=== PATIENT | female | born 1995 | race Caucasian/White ===

== ENCOUNTER 2018-03-12 21:46 | Emergency (ER) | payer OTHER, SELFPAY ==
[2018-03-12 21:53] VITALS: BP 110/70; PULSE 75; RESP 18; TEMP 36.7; O2SAT 98; BMI 24.9
--- NOTE | 2018-03-12 22:13 | PC.NURSE ---
Pt reports she was at the gym tonight. She was doing barbell squats and did some running on treadmill after, came home and having intense pain around L thigh, hamstring with radiation down L leg with tingling in L foot. +CMS and ambulatory on arrival. Pt reports she has a traumatic fall off a horse 7 years ago, my hamstring ripped and took a piece of my pelvic bone with it and i have a bone spur there Pt thinks she reinjured/aggravated it tonight at the gym. Asked pt if she had any trouble with urination/ BM- reports she is unsure since she has not tried since the gym but will update after using restroom
--- NOTE | 2018-03-12 22:32 | DI.RAD.S_ITS ---
PROCEDURE: XR HIP W PEL IF DONE LT 2V INDICATIONS: pain, previous pelvic fracture TECHNIQUE: AP pelvis with lateral view(s) of the left hip(s). COMPARISON: None. FINDINGS: Bones: There are corticated fracture fragments involving the left ishium, consistent with old fracture. No acute fractures or dislocations. Pelvic ring appears intact. No suspicious bony lesions. Soft tissues: The visualized bowel gas pattern is normal. No suspicious soft tissue calcifications. IMPRESSION: 1. No acute fracture or dislocation. 2. Old ischial avulsion fracture. Dictated by: Concetta Hu M.D. on 03/13/2018 at 7:23 Approved by: Concetta Hu M.D. on 03/13/2018 at 7:26
[2018-03-12] MEDS: IBUPROFEN 400 MG TABLET 800 MG PO (22:40)
[2018-03-13] VITALS: BP 114/54; PULSE 66; RESP 16; O2SAT 100
--- NOTE | 2018-03-13 02:16 | ED_ITS ---
HPI - Extremity Injury (Lower) General Chief Complaint: Extremity Injury, Lower Stated Complaint: PELVIC BONE Time Seen by Provider: 03/12/18 22:24 Source: patient Mode of arrival: ambulatory Limitations: no limitations History of Present Illness HPI Narrative: Patient is a 22-year-old female presenting with left groin pain. She was at the gym yesterday she was doing squats with a barbell she was able to run on the treadmill afterwards. Today she went to the mall and while driving home she had intense left groin pain. It hurts whenever she moves her hip. No flank pain no painful urination. No numbness or tingling. She is a previous injury of the the left pelvic ring. She had a horse injury they said she has an avulsion fracture which never quite healed right. She has not had any issues. She is able to weightbear however she says it is painful. She has not taken anything for pain today. She denies any fevers. Related Data Allergies Allergy/AdvReac Type Severity Reaction Status Date / Time amoxicillin Allergy Hives Verified 03/12/18 21:59 azithromycin Allergy Hives Verified 03/12/18 21:59 Review of Systems Review of Systems GENERAL: Denies chills,fever HEENT: Denies throat pain RESPIRATORY: Denies dyspnea, cough, wheezing CARDIOVASCULAR: Denies chest pain, palpitations GASTROINTESTINAL: Denies nausea, vomiting MUSCULOSKELETAL: See HPI SKIN: No rash, no laceration, no pruritus NEUROLOGIC: Denies weakness, dizziness, headache, numbness 8 point review of systems is negative except for those stated above and HPI All systems reviewed & are unremarkable except as noted in HPI and below [facility] Social History Smoking Status: Never smoker Exam Initial Vital Signs Initial Vital Signs: Vital Signs Temperature 98.0 F 03/12/18 21:53 Pulse Rate 75 03/12/18 21:53 Respiratory Rate 18 03/12/18 21:53 Blood Pressure 110/70 03/12/18 21:53 Pulse Oximetry 98 03/12/18 21:53 GENERAL: Tearful young female CARDIOVASCULAR: peripheral pulses in tact, cap refill <2 sec RESPIRATORY: No respiratory distress, speaks in full sentences without difficulty ABDOMEN: Soft, nontender, no guarding or rebound : No CVA tenderness EXTREMITIES: Normal range of motion, no clubbing or edema. Neurovascularly intact -pelvis is stable tender all left hip. Extreme hip pain with internal and external rotation. Needed ankle stable and nontender. NEUROLOGICAL: Cranial nerves II through XII grossly intact. Normal gait and speech. SKIN: Warm, dry, no petechiae, no rashes or lesions. Course Orders Ordered: ED Orders 03/12/18 22:32 XR hip w pel if done LT 2V Stat Discontinued Medications Ibuprofen (Advil) 800 mg PO NOW ONE Stop: 03/12/18 22:33 Last Admin: 03/12/18 22:40 Dose: 800 mg Vital Signs - 8 hr 03/12/18 21:53 03/13/18 00:00 Temperature 98.0 F Pulse Rate 75 66 Respiratory Rate 18 16 Blood Pressure 110/70 114/54 L Pulse Oximetry 98 100 MDM - Extremity Injury (Lower) Imaging Data Left hip x-ray: Attestation: I personally reviewed and interpreted this imaging study as follows: My impression: Old avulsion fracture noted on the left inferior rami, no acute process otherwise. [facility] Narrative Medical decision making narrative: Pain improved after Motrin. Feeling better. More likely a musculoskeletal strain. Discharge Plan Departure Patient Disposition: Home, Self-Care Clinical Impression: Strain of left inguinal muscle Discharge Date/Time: 03/13/18 00:02 Interventions: ED Discharge Assessment Last Done: 03/13/18 00:00 Instructions: Groin Strain Activity Restrictions/Additional Instructions: *You have been diagnosed with all left groin strain *What to do: Ice, limit activity until feeling better, x-ray does not show any new findings, previous fractures still noted *Continue to take medications as directed -Motrin 800 mg every 8 hr if needed for pain with food *Follow up with your primary care provider in 2-3 days *Return to ER if you should have any new, worsening or concerning symptoms Stand Alone Forms: Work/School Restrictions
== END 2018-03-13 00:02 | disposition home or self-care (01) ==
PROVIDERS: Emergency Provider Emergency Medicine
DX: S39.013A Strain of muscle, fascia and tendon of pelvis, initial encounter (principal); Y93.B9 Activity, other involving muscle strengthening exercises
CPT/HCPCS: 73502; 81003; 81025; 99283; 99284

== ENCOUNTER → 2018-07-22 16:09 | Outpatient (CLI) | payer OTHER, SELFPAY ==
--- NOTE | 2018-07-22 16:11 | DI.RAD.S_ITS ---
PROCEDURE: XR CHEST 2V INDICATIONS: cough, shortness of breath, chest pain, fatigue TECHNIQUE: 2 views of the chest were acquired. COMPARISON: None. FINDINGS: Surgical changes and devices: None. Lungs and pleura: No pleural effusions or pneumothorax. Lungs are clear. Mediastinum: Mediastinal contours are normal. Heart size is normal. Bones and chest wall: No suspicious bony abnormalities. Soft tissues appear unremarkable. IMPRESSION: No acute pulmonary process. Dictated by: Nicky Bethea M.D. on 07/22/2018 at 16:33 Approved by: Nicky Bethea M.D. on 07/22/2018 at 16:34
== END ==
PROVIDERS: Visit Provider Physician Assistant
DX: R05 Cough (principal); R06.02 Shortness of breath; R07.9 Chest pain, unspecified; R53.83 Other fatigue
CPT/HCPCS: 71046

== ENCOUNTER → 2019-04-29 13:51 | Outpatient (CLI) | payer OTHER, SELFPAY ==
--- NOTE | 2019-04-29 13:55 | DI.RAD.S_ITS ---
PROCEDURE: XR FOOT RT MIN 3V INDICATIONS: Right foot pain TECHNIQUE: 3 views of the foot were acquired. COMPARISON: [facility], CR, XR ANKLE RT MIN 3V, 04/29/2019, 14:13. FINDINGS: Bones: No fractures or dislocations. No suspicious bony lesions. No significant degenerative changes are evident. Soft tissues: No tibiotalar joint effusion. The overlying soft tissues are within normal limits. IMPRESSION: No acute osseous abnormality of the right foot. Dictated by: Aki Ty M.D. on 04/29/2019 at 13:20 Approved by: Aki yT M.D. on 04/29/2019 at 13:21
--- NOTE | 2019-04-29 13:55 | DI.RAD.S_ITS ---
PROCEDURE: XR ANKLE RT MIN 3V INDICATIONS: Right foot pain TECHNIQUE: 3 views of the ankle were acquired. COMPARISON: None. FINDINGS: Bones: No fractures or dislocations. Ankle mortise is normally aligned. No suspicious bony lesions. No significant degenerative changes of the right midfoot or hindfoot joints are appreciated. Soft tissues: No tibiotalar joint effusion. The overlying soft tissues are unremarkable. IMPRESSION: No acute fracture of the right ankle. Dictated by: Aki Ty M.D. on 04/29/2019 at 13:21 Approved by: Aki Ty M.D. on 04/29/2019 at 13:21
== END ==
PROVIDERS: Visit Provider Physician Assistant
DX: M25.571 Pain in right ankle and joints of right foot (principal); M79.671 Pain in right foot
CPT/HCPCS: 73610; 73630

== ENCOUNTER 2019-05-09 14:01 | Emergency (ER) | payer OTHER, SELFPAY ==
[2019-05-09 14:05] VITALS: BP 132/85; PULSE 81; RESP 18; TEMP 36.5; O2SAT 98
--- NOTE | 2019-05-09 14:37 | ED.PSYCH ---
HPI - Psych <FADY Baker - Last Filed: 05/09/19 23:46> General Chief Complaint: Psychiatric Symptoms Stated Complaint: withdrawls from anxiety medication Time Seen by Provider: 05/09/19 14:04 Source: patient Mode of arrival: ambulatory Limitations: no limitations History of Present Illness HPI Narrative: This is a 23-year-old female, nonsmoker, presents to ED with generalized body aches, nausea, feeling anxious, auditory and visual hallucination, headache. Patient reports that she had ran out of Zoloft 4 days ago. She takes 150 mg per day and she has been on the medications since September 2018 for depression and anxiety. She was initially diagnosed with depression when she was in [employer]. However she started on medication this year. She initially started with 25 mg daily and has been increased slowly. She has been on 150 mg Zoloft last 3 months. The patient reports she was not aware that she needed to be seen at the clinic by her primary care provider to get the prescription refilled. However, she reports that auditory and visual hallucinations started before she ran out of the medication which was 4 days ago. She reports takes occasional edible MJ but does not use other recreational drugs. She reports her menses is due about to at this time. She reports she is not suicidal or homicidal. She reports has an appointment in mid May with her provider at [facility] in [place] to get her prescription renewed which she intends to keep this. She once had ran out of medication in the past but the withdrawal symptoms is not as severe as this time. Related Data Home Medications Medication Instructions Recorded Confirmed sertraline [Zoloft] 150 mg PO DAILY 05/09/19 05/09/19 Previous Rx's Medication Instructions Recorded albuterol sulfate HFA 90 2 puff INHALATION Q4-6H PRN #8.5 08/01/18 mcg/actuation aerosol inhaler gram sertraline 100 mg PO Q24H #45 tab 05/09/19 Allergies Allergy/AdvReac Type Severity Reaction Status Date / Time tramadol Allergy Severe Vomiting, Verified 05/09/19 14:13 Diarrhea amoxicillin Allergy Hives Verified 05/09/19 14:13 azithromycin Allergy Hives Verified 05/09/19 14:13 Review of Systems <FADY Baker - Last Filed: 05/09/19 23:46> Constitutional Comments: General: Reports feeling hot and cold, . Denies fever. HEENT: Denies sinus pain, ear pain, sore throat, difficulty swallowing, dizziness. Respiratory: Reports some difficulty breathing. Denies cough, wheezing, hemoptysis, sputum. Cardiovascular: Denies chest pain, palpitations, orthopnea, edema. Gastrointestinal: Reports nausea, abdominal pain and diarrhea. Denies Vomiting, constipation, melena. : Denies dysuria, frequency, incontinence, hematuria, urinary retention. Musculoskeletal: Reports generalized body aches. Skin: Denies rash, skin lesions, or other. Neurologic: Reports weakness/tingling/numbness. Reports feeling shaky. Reports vision change. Reports headache. Reports insomnia. Psychiatric: Denies suicidal or homicidal ideation. Reports visual and auditory hallucination. 12-point review of systems is negative except for those stated above. PFSH <FADY Baker - Last Filed: 05/09/19 23:46> Medical History Anxiety (Acute) Depression (Acute) Social History Smoking Status: Never smoker Social History Smoking Status: Never smoker Exam <FADY Baker - Last Filed: 05/09/19 23:46> Narrative Exam Narrative: General appearance: well developed, well nourished, in tears during exam. Head: normocephalic, atraumatic, no scalp lesions, non-tender. Eye: pupil equal, round. EOMI. Nose: nares patent. Oral: mucosa moist. Neck/Thyroid: neck supple, full range of motion, no visible masses. Skin: no suspicious rashes, lesions over visible areas. Warm and dry. Heart: no clubbing, no cyanosis, no edema. Lungs: Breathing even and unlabored. No stridor. No accessory muscles used. Chest: normal shape and expansion. Abdomen: non-obese, non-distended. Neurologic: alert and oriented. Cognitive exam, INVENTORY CONTROL/SHIPPING RECEIVING and PNS grossly intact on informal exam. Initial Vital Signs Initial Vital Signs: Vital Signs Temperature 97.7 F 05/09/19 14:05 Pulse Rate 81 05/09/19 14:05 Respiratory Rate 18 05/09/19 14:05 Blood Pressure 132/85 05/09/19 14:05 Pulse Oximetry 98 05/09/19 14:05 Psych Appearance: grossly normal and well kempt Mental Status: mental status grossly normal Speech and Movement: speech and movement normal and not restless Mood: anxious mood Affect: anxious affect Attitude: cooperative Thought Process: normal Thought Content: normal Judgment: judgment good <Anum Moore DO - Last Filed: 05/10/19 08:19> Initial Vital Signs Initial Vital Signs: Vital Signs Temperature 97.7 F 05/09/19 14:05 Pulse Rate 81 05/09/19 14:05 Respiratory Rate 18 05/09/19 14:05 Blood Pressure 132/85 05/09/19 14:05 Pulse Oximetry 98 05/09/19 14:05 Course <FADY Baker - Last Filed: 05/09/19 23:46> Orders Ordered: Discontinued Medications Lorazepam (Ativan) 0.5 mg PO NOW ONE Stop: 05/09/19 15:05 Last Admin: 05/09/19 15:30 Dose: 0.5 mg Ondansetron HCl (Zofran Odt) 4 mg SL NOW ONE Stop: 05/09/19 14:34 Last Admin: 05/09/19 14:38 Dose: 4 mg Vital Signs - 8 hr 05/09/19 14:05 Temperature 97.7 F Pulse Rate 81 Respiratory Rate 18 Blood Pressure 132/85 Pulse Oximetry 98 <Anum Moore DO - Last Filed: 05/10/19 08:19> Orders Ordered: Discontinued Medications Lorazepam (Ativan) 0.5 mg PO NOW ONE Stop: 05/09/19 15:05 Last Admin: 05/09/19 15:30 Dose: 0.5 mg Ondansetron HCl (Zofran Odt) 4 mg SL NOW ONE Stop: 05/09/19 14:34 Last Admin: 05/09/19 14:38 Dose: 4 mg Vital Signs - 8 hr 05/09/19 14:05 Temperature 97.7 F Pulse Rate 81 Respiratory Rate 18 Blood Pressure 132/85 Pulse Oximetry 98 MDM - Psych <FADY Baker - Last Filed: 05/09/19 23:46> Differential Diagnosis Likely acute psychosis, depression and other (Zolof withdrawl) Medical Records Attestation: I reviewed the patient's medical records. Lab Data Attestation: I reviewed the patient's lab results. Result diagrams: 05/09/19 14:45 05/09/19 14:45 Lab Results 05/09/19 05/09/19 05/09/19 Range/Units 14:42 14:45 14:45 WBC 7.2 (4.5-11.0) X10^3/uL RBC 4.01 (4.0-5.2) X10^6/uL Hgb 12.9 (12.0-16.0) g/dL Hct 38.2 (36-46) % MCV 95.3 (80-100) fL MCH 32.3 (26-34) PG MCHC 33.9 (30-36) % RDW 11.6 (11.6-14.8) % Plt Count 184 (150-400) X10^3/uL Neut % (Auto) 60.6 (50-75) % Lymph % (Auto) 27.4 (25-40) % [place] % (Auto) 8.2 (3-14) % Eos % (Auto) 3.1 (2-4) % Baso % (Auto) 0.7 (0-2) % Neut # (Auto) 4300 (4314-4792) /uL Lymph # (Auto) 2000 (4231-9943) /uL [place] # (Auto) 600 (0-900) /uL Eos # (Auto) 200 (0-450) /uL Baso # (Auto) 100 (0-100) /uL Sodium 140 (137-145) mmol/L Potassium 4.2 (3.4-5.1) mmol/L Chloride 104 (98-107) mmol/L Carbon Dioxide 25 (22-32) mmol/L BUN 14 (7-17) mg/dL Creatinine 0.70 (0.52-1.04) mg/dL Estimated GFR > 60.0 (>60) mL/min BUN/Creatinine Ratio 20.0 (6-22) Glucose 77 (70-100) mg/dL Calcium 9.7 (8.4-10.2) mg/dL TSH (0.47-4.68) uIU/mL Urine Opiates Screen Negative (Negative) Ur Oxycodone Screen Negative (Negative) Urine Methadone Screen Negative (Negative) Ur Barbiturates Screen Negative (Negative) U Tricyclic Antidepress Negative (Negative) Ur Phencyclidine Scrn Negative (Negative) Ur Amphetamines Screen Negative (Negative) U Methamphetamines Scrn Negative (Negative) Ur MDMA Scrn (Ecstasy) Negative (Negative) U Benzodiazepines Scrn Negative (Negative) Urine Cocaine Screen Negative (Negative) U Marijuana (THC) Screen Positive H (Negative) Ethyl Alcohol < 10 ( - 10) mg/dL 05/09/19 Range/Units 14:45 WBC (4.5-11.0) X10^3/uL RBC (4.0-5.2) X10^6/uL Hgb (12.0-16.0) g/dL Hct (36-46) % MCV (80-100) fL MCH (26-34) PG MCHC (30-36) % RDW (11.6-14.8) % Plt Count (150-400) X10^3/uL Neut % (Auto) (50-75) % Lymph % (Auto) (25-40) % [place] % (Auto) (3-14) % Eos % (Auto) (2-4) % Baso % (Auto) (0-2) % Neut # (Auto) (4958-0207) /uL Lymph # (Auto) (6867-2130) /uL [place] # (Auto) (0-900) /uL Eos # (Auto) (0-450) /uL Baso # (Auto) (0-100) /uL Sodium (137-145) mmol/L Potassium (3.4-5.1) mmol/L Chloride (98-107) mmol/L Carbon Dioxide (22-32) mmol/L BUN (7-17) mg/dL Creatinine (0.52-1.04) mg/dL Estimated GFR (>60) mL/min BUN/Creatinine Ratio (6-22) Glucose (70-100) mg/dL Calcium (8.4-10.2) mg/dL TSH 1.72 (0.47-4.68) uIU/mL Urine Opiates Screen (Negative) Ur Oxycodone Screen (Negative) Urine Methadone Screen (Negative) Ur Barbiturates Screen (Negative) U Tricyclic Antidepress (Negative) Ur Phencyclidine Scrn (Negative) Ur Amphetamines Screen (Negative) U Methamphetamines Scrn (Negative) Ur MDMA Scrn (Ecstasy) (Negative) U Benzodiazepines Scrn (Negative) Urine Cocaine Screen (Negative) U Marijuana (THC) Screen (Negative) Ethyl Alcohol ( - 10) mg/dL Urine Dip Bedside Urine Glucose Negative Bedside Urine Bilirubin - Negative Bedside Urine Ketone +/- 5 Urine Specific [place] 1.030 Bedside Urine Occult Blood - Negative Bedside Urine pH 5.5 Bedside Urine Protein - Negative Bedside Urine Urobilinogen - Negative Bedside Urine Nitrite - Negative Bedside Urine Leukocytes - Negative Esterase MDM Narrative Medical decision making narrative: This is a 23-year-old female who came in to ED with multiple symptoms which is consistent with Zolof medication withdrawal. The patient denies suicidal or homicidal ideation. She also states she has had auditory, visual hallucinations even before the stopping medication but rarely. The patient had stop taking her daily Zoloft 150mg dose 4 days ago since her medication had ran out. She was not aware that he needed to be seen at the clinic by her provider to get a refill of prescription for this medication. She has been on this medicine since September 2018 and has been increased incrementally from 25 mg to 150 mg. She has been taking 150 mg dose for last 3 months without significant side effects. Blood tests and urine tests were done with unremarkable results. Her UDS shows THC which she agrees taking edible form occasionally. Patient was medicated with Ativan p.o. 0.5 mg which helped her symptoms. She has given prescription for Zoloft 150 mg tab which she should have for 1 month until she will be seen by her primary care physician at [facility] in [place]. Patient was advised to take half of the tab to in for week and increase the dose she does not experience significant side effects. Patient verbalized the understanding and no further questions were expressed and agrees with treatment plan. The patient has released to her father. <Anum Moore, DO - Last Filed: 05/10/19 08:19> Lab Data Lab Results 05/09/19 05/09/19 05/09/19 Range/Units 14:42 14:45 14:45 WBC 7.2 (4.5-11.0) X10^3/uL RBC 4.01 (4.0-5.2) X10^6/uL Hgb 12.9 (12.0-16.0) g/dL Hct 38.2 (36-46) % MCV 95.3 (80-100) fL MCH 32.3 (26-34) PG MCHC 33.9 (30-36) % RDW 11.6 (11.6-14.8) % Plt Count 184 (150-400) X10^3/uL Neut % (Auto) 60.6 (50-75) % Lymph % (Auto) 27.4 (25-40) % [place] % (Auto) 8.2 (3-14) % Eos % (Auto) 3.1 (2-4) % Baso % (Auto) 0.7 (0-2) % Neut # (Auto) 4300 (7104-9539) /uL Lymph # (Auto) 2000 (1911-8256) /uL [place] # (Auto) 600 (0-900) /uL Eos # (Auto) 200 (0-450) /uL Baso # (Auto) 100 (0-100) /uL Sodium 140 (137-145) mmol/L Potassium 4.2 (3.4-5.1) mmol/L Chloride 104 (98-107) mmol/L Carbon Dioxide 25 (22-32) mmol/L BUN 14 (7-17) mg/dL Creatinine 0.70 (0.52-1.04) mg/dL Estimated GFR > 60.0 (>60) mL/min BUN/Creatinine Ratio 20.0 (6-22) Glucose 77 (70-100) mg/dL Calcium 9.7 (8.4-10.2) mg/dL TSH (0.47-4.68) uIU/mL Urine Opiates Screen Negative (Negative) Ur Oxycodone Screen Negative (Negative) Urine Methadone Screen Negative (Negative) Ur Barbiturates Screen Negative (Negative) U Tricyclic Antidepress Negative (Negative) Ur Phencyclidine Scrn Negative (Negative) Ur Amphetamines Screen Negative (Negative) U Methamphetamines Scrn Negative (Negative) Ur MDMA Scrn (Ecstasy) Negative (Negative) U Benzodiazepines Scrn Negative (Negative) Urine Cocaine Screen Negative (Negative) U Marijuana (THC) Screen Positive H (Negative) Ethyl Alcohol < 10 ( - 10) mg/dL 08/20/19 Range/Units 14:45 WBC (4.5-11.0) X10^3/uL RBC (4.0-5.2) X10^6/uL Hgb (12.0-16.0) g/dL Hct (36-46) % MCV (80-100) fL MCH (26-34) PG MCHC (30-36) % RDW (11.6-14.8) % Plt Count (150-400) X10^3/uL Neut % (Auto) (50-75) % Lymph % (Auto) (25-40) % [place] % (Auto) (3-14) % Eos % (Auto) (2-4) % Baso % (Auto) (0-2) % Neut # (Auto) (8147-7972) /uL Lymph # (Auto) (7225-4660) /uL [place] # (Auto) (0-900) /uL Eos # (Auto) (0-450) /uL Baso # (Auto) (0-100) /uL Sodium (137-145) mmol/L Potassium (3.4-5.1) mmol/L Chloride (98-107) mmol/L Carbon Dioxide (22-32) mmol/L BUN (7-17) mg/dL Creatinine (0.52-1.04) mg/dL Estimated GFR (>60) mL/min BUN/Creatinine Ratio (6-22) Glucose (70-100) mg/dL Calcium (8.4-10.2) mg/dL TSH 1.72 (0.47-4.68) uIU/mL Urine Opiates Screen (Negative) Ur Oxycodone Screen (Negative) Urine Methadone Screen (Negative) Ur Barbiturates Screen (Negative) U Tricyclic Antidepress (Negative) Ur Phencyclidine Scrn (Negative) Ur Amphetamines Screen (Negative) U Methamphetamines Scrn (Negative) Ur MDMA Scrn (Ecstasy) (Negative) U Benzodiazepines Scrn (Negative) Urine Cocaine Screen (Negative) U Marijuana (THC) Screen (Negative) Ethyl Alcohol ( - 10) mg/dL Urine Dip Bedside Urine Glucose Negative Bedside Urine Bilirubin - Negative Bedside Urine Ketone +/- 5 Urine Specific [place] 1.030 Bedside Urine Occult Blood - Negative Bedside Urine pH 5.5 Bedside Urine Protein - Negative Bedside Urine Urobilinogen - Negative Bedside Urine Nitrite - Negative Bedside Urine Leukocytes - Negative Esterase Discharge Plan Departure Patient Disposition: Home Clinical Impression: Encounter for medication refill Depression Qualifiers: Depression Type: unspecified Qualified Code(s): F32.9 - Major depressive disorder, single episode, unspecified Discharge Date/Time: 05/09/19 16:15 Interventions: ED Discharge Assessment Last Done: 05/09/19 16:15 Activity Restrictions/Additional Instructions: You have been diagnosed with [history of depression/anxiety. You're here for medication refill for Zoloft. Your lab test today looks unremarkable. Your symptoms are related to medication withdrawal at this time]. What to do: *Take your medications as directed. I am refilling her Zoloft for 1 month. Please start at 75 mg for a week and increase dose to 150 mg there is no significant side effect. *Follow up with your primary care provider provider Nilesh at [facility] in [place] next week, call for an appointment. Let them know you were seen in the ED and that we asked you to be seen in follow up. *Return to ED if you have any new, worsening, or concerning symptoms, such as [worsening symptoms for chest pain, breathing difficulty, dizziness, hallucination, suicidal ideation, homicidal ideation, or any acute concerns]. Prescriptions: New sertraline 100 mg tablet 100 mg PO Q24H Qty: 45 RF: 0 No Action albuterol sulfate 90 mcg/actuation HFA aerosol inhaler 2 puff INHALATION Q4-6H PRN (Reason: shortness of breath) Qty: 8.5 RF: 1 sertraline [Zoloft] 50 mg Tablet 150 mg PO DAILY RF: 0 <Anum Moore, - Last Filed: 05/10/19 08:19> [place] [facility] Attending Albertoature Attestation: I was immediately available in the department for consultation. Documentation has been reviewed. I agree with assessment and plan.
[2019-05-09] MEDS: ONDANSETRON 4 MG ODT SL (14:38)
--- NOTE | 2019-05-09 14:49 | ED_ITS ---
HPI - Psych <FADY Baker - Last Filed: 05/09/19 23:46> General Chief Complaint: Psychiatric Symptoms Stated Complaint: withdrawls from anxiety medication Time Seen by Provider: 05/09/19 14:04 Source: patient Mode of arrival: ambulatory Limitations: no limitations History of Present Illness HPI Narrative: This is a 23-year-old female, nonsmoker, presents to ED with generalized body aches, nausea, feeling anxious, auditory and visual hallucination, headache. Patient reports that she had ran out of Zoloft 4 days ago. She takes 150 mg per day and she has been on the medications since September 2018 for depression and anxiety. She was initially diagnosed with depression when she was in [employer]. However she started on medication this year. She initially started with 25 mg daily and has been increased slowly. She has been on 150 mg Zoloft last 3 months. The patient reports she was not aware that she needed to be seen at the clinic by her primary care provider to get the prescription refilled. However, she reports that auditory and visual hallucinations started before she ran out of the medication which was 4 days ago. She reports takes occasional edible MJ but does not use other recreational drugs. She reports her menses is due about to at this time. She reports she is not suicidal or homicidal. She reports has an appointment in mid May with her provider at [facility] in [place] to get her prescription renewed which she intends to keep this. She once had ran out of medication in the past but the withdrawal symptoms is not as severe as this time. Related Data Home Medications Medication Instructions Recorded Confirmed sertraline [Zoloft] 150 mg PO DAILY 05/09/19 05/09/19 Previous Rx's Medication Instructions Recorded albuterol sulfate HFA 90 2 puff INHALATION Q4-6H PRN #8.5 08/01/18 mcg/actuation aerosol inhaler gram sertraline 100 mg PO Q24H #45 tab 05/09/19 Allergies Allergy/AdvReac Type Severity Reaction Status Date / Time tramadol Allergy Severe Vomiting, Verified 05/09/19 14:13 Diarrhea amoxicillin Allergy Hives Verified 05/09/19 14:13 azithromycin Allergy Hives Verified 05/09/19 14:13 Review of Systems <FADY Baker - Last Filed: 05/09/19 23:46> Constitutional Comments: General: Reports feeling hot and cold, . Denies fever. HEENT: Denies sinus pain, ear pain, sore throat, difficulty swallowing, dizziness. Respiratory: Reports some difficulty breathing. Denies cough, wheezing, hemoptysis, sputum. Cardiovascular: Denies chest pain, palpitations, orthopnea, edema. Gastrointestinal: Reports nausea, abdominal pain and diarrhea. Denies Vomiting, constipation, melena. : Denies dysuria, frequency, incontinence, hematuria, urinary retention. Musculoskeletal: Reports generalized body aches. Skin: Denies rash, skin lesions, or other. Neurologic: Reports weakness/tingling/numbness. Reports feeling shaky. Reports vision change. Reports headache. Reports insomnia. Psychiatric: Denies suicidal or homicidal ideation. Reports visual and auditory hallucination. 12-point review of systems is negative except for those stated above. PFSH <FADY Baker - Last Filed: 05/09/19 23:46> Medical History Anxiety (Acute) Depression (Acute) Social History Smoking Status: Never smoker Social History Smoking Status: Never smoker Exam <FADY Baker - Last Filed: 05/09/19 23:46> Narrative Exam Narrative: General appearance: well developed, well nourished, in tears during exam. Head: normocephalic, atraumatic, no scalp lesions, non-tender. Eye: pupil equal, round. EOMI. Nose: nares patent. Oral: mucosa moist. Neck/Thyroid: neck supple, full range of motion, no visible masses. Skin: no suspicious rashes, lesions over visible areas. Warm and dry. Heart: no clubbing, no cyanosis, no edema. Lungs: Breathing even and unlabored. No stridor. No accessory muscles used. Chest: normal shape and expansion. Abdomen: non-obese, non-distended. Neurologic: alert and oriented. 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 Initial Vital Signs Initial Vital Signs: Vital Signs Temperature 97.7 F 05/09/19 14:05 Pulse Rate 81 05/09/19 14:05 Respiratory Rate 18 05/09/19 14:05 Blood Pressure 132/85 05/09/19 14:05 Pulse Oximetry 98 05/09/19 14:05 Psych Appearance: grossly normal and well kempt Mental Status: mental status grossly normal Speech and Movement: speech and movement normal and not restless Mood: anxious mood Affect: anxious affect Attitude: cooperative Thought Process: normal Thought Content: normal Judgment: judgment good <Anum Moore DO - Last Filed: 05/10/19 08:19> Initial Vital Signs Initial Vital Signs: Vital Signs Temperature 97.7 F 05/09/19 14:05 Pulse Rate 81 05/09/19 14:05 Respiratory Rate 18 05/09/19 14:05 Blood Pressure 132/85 05/09/19 14:05 Pulse Oximetry 98 05/09/19 14:05 Course <FADY Baker - Last Filed: 05/09/19 23:46> Orders Ordered: Discontinued Medications Lorazepam (Ativan) 0.5 mg PO NOW ONE Stop: 05/09/19 15:05 Last Admin: 05/09/19 15:30 Dose: 0.5 mg Ondansetron HCl (Zofran Odt) 4 mg SL NOW ONE Stop: 05/09/19 14:34 Last Admin: 05/09/19 14:38 Dose: 4 mg Vital Signs - 8 hr 05/09/19 14:05 Temperature 97.7 F Pulse Rate 81 Respiratory Rate 18 Blood Pressure 132/85 Pulse Oximetry 98 <Anum Moore DO - Last Filed: 05/10/19 08:19> Orders Ordered: Discontinued Medications Lorazepam (Ativan) 0.5 mg PO NOW ONE Stop: 05/09/19 15:05 Last Admin: 05/09/19 15:30 Dose: 0.5 mg Ondansetron HCl (Zofran Odt) 4 mg SL NOW ONE Stop: 05/09/19 14:34 Last Admin: 05/09/19 14:38 Dose: 4 mg Vital Signs - 8 hr 05/09/19 14:05 Temperature 97.7 F Pulse Rate 81 Respiratory Rate 18 Blood Pressure 132/85 Pulse Oximetry 98 MDM - Psych <FADY Baker - Last Filed: 05/09/19 23:46> Differential Diagnosis Likely acute psychosis, depression and other (Zolof withdrawl) Medical Records Attestation: I reviewed the patient's medical records. Lab Data Attestation: I reviewed the patient's lab results. Result diagrams: 05/09/19 14:45 05/09/19 14:45 Lab Results 05/09/19 05/09/19 05/09/19 Range/Units 14:42 14:45 14:45 WBC 7.2 (4.5-11.0) X10^3/uL RBC 4.01 (4.0-5.2) X10^6/uL Hgb 12.9 (12.0-16.0) g/dL Hct 38.2 (36-46) % MCV 95.3 (80-100) fL MCH 32.3 (26-34) PG MCHC 33.9 (30-36) % RDW 11.6 (11.6-14.8) % Plt Count 184 (150-400) X10^3/uL Neut % (Auto) 60.6 (50-75) % Lymph % (Auto) 27.4 (25-40) % Burnet % (Auto) 8.2 (3-14) % Eos % (Auto) 3.1 (2-4) % Baso % (Auto) 0.7 (0-2) % Neut # (Auto) 4300 (7522-9801) /uL Lymph # (Auto) 2000 (3031-4960) /uL Burnet # (Auto) 600 (0-900) /uL Eos # (Auto) 200 (0-450) /uL Baso # (Auto) 100 (0-100) /uL Sodium 140 (137-145) mmol/L Potassium 4.2 (3.4-5.1) mmol/L Chloride 104 (98-107) mmol/L Carbon Dioxide 25 (22-32) mmol/L BUN 14 (7-17) mg/dL Creatinine 0.70 (0.52-1.04) mg/dL Estimated GFR > 60.0 (>60) mL/min BUN/Creatinine Ratio 20.0 (6-22) Glucose 77 (70-100) mg/dL Calcium 9.7 (8.4-10.2) mg/dL TSH (0.47-4.68) uIU/mL Urine Opiates Screen Negative (Negative) Ur Oxycodone Screen Negative (Negative) Urine Methadone Screen Negative (Negative) Ur Barbiturates Screen Negative (Negative) U Tricyclic Antidepress Negative (Negative) Ur Phencyclidine Scrn Negative (Negative) Ur Amphetamines Screen Negative (Negative) U Methamphetamines Scrn Negative (Negative) Ur MDMA Scrn (Ecstasy) Negative (Negative) U Benzodiazepines Scrn Negative (Negative) Urine Cocaine Screen Negative (Negative) U Marijuana (THC) Screen Positive H (Negative) Ethyl Alcohol < 10 ( - 10) mg/dL 05/09/19 Range/Units 14:45 WBC (4.5-11.0) X10^3/uL RBC (4.0-5.2) X10^6/uL Hgb (12.0-16.0) g/dL Hct (36-46) % MCV (80-100) fL MCH (26-34) PG MCHC (30-36) % RDW (11.6-14.8) % Plt Count (150-400) X10^3/uL Neut % (Auto) (50-75) % Lymph % (Auto) (25-40) % Burnet % (Auto) (3-14) % Eos % (Auto) (2-4) % Baso % (Auto) (0-2) % Neut # (Auto) (5196-9381) /uL Lymph # (Auto) (0756-0941) /uL Burnet # (Auto) (0-900) /uL Eos # (Auto) (0-450) /uL Baso # (Auto) (0-100) /uL Sodium (137-145) mmol/L Potassium (3.4-5.1) mmol/L Chloride (98-107) mmol/L Carbon Dioxide (22-32) mmol/L BUN (7-17) mg/dL Creatinine (0.52-1.04) mg/dL Estimated GFR (>60) mL/min BUN/Creatinine Ratio (6-22) Glucose (70-100) mg/dL Calcium (8.4-10.2) mg/dL TSH 1.72 (0.47-4.68) uIU/mL Urine Opiates Screen (Negative) Ur Oxycodone Screen (Negative) Urine Methadone Screen (Negative) Ur Barbiturates Screen (Negative) U Tricyclic Antidepress (Negative) Ur Phencyclidine Scrn (Negative) Ur Amphetamines Screen (Negative) U Methamphetamines Scrn (Negative) Ur MDMA Scrn (Ecstasy) (Negative) U Benzodiazepines Scrn (Negative) Urine Cocaine Screen (Negative) U Marijuana (THC) Screen (Negative) Ethyl Alcohol ( - 10) mg/dL Urine Dip Bedside Urine Glucose Negative Bedside Urine Bilirubin - Negative Bedside Urine Ketone +/- 5 Urine Specific [place] 1.030 Bedside Urine Occult Blood - Negative Bedside Urine pH 5.5 Bedside Urine Protein - Negative Bedside Urine Urobilinogen - Negative Bedside Urine Nitrite - Negative Bedside Urine Leukocytes - Negative Esterase MDM Narrative Medical decision making narrative: This is a 23-year-old female who came in to ED with multiple symptoms which is consistent with Zolof medication withdrawal. The patient denies suicidal or homicidal ideation. She also states she has had auditory, visual hallucinations even before the stopping medication but rarely. The patient had stop taking her daily Zoloft 150mg dose 4 days ago since her medication had ran out. She was not aware that he needed to be seen at the clinic by her provider to get a refill of prescription for this medication. She has been on this medicine since September 2018 and has been increased inc rementally from 25 mg to 150 mg. She has been taking 150 mg dose for last 3 months without significant side effects. Blood tests and urine tests were done with unremarkable results. Her UDS shows THC which she agrees taking edible form occasionally. Patient was medicated with Ativan p.o. 0.5 mg which helped her symptoms. She has given prescription for Zoloft 150 mg tab which she should have for 1 month until she will be seen by her primary care physician at [facility] in [place]. Patient was advised to take half of the tab to in for week and increase the dose she does not experience significant side effects. Patient verbalized the understanding and no further questions were expressed and agrees with treatment plan. The patient has released to her father. <Anum Moore, DO - Last Filed: 05/10/19 08:19> Lab Data Lab Results 05/09/19 05/09/19 05/09/19 Range/Units 14:42 14:45 14:45 WBC 7.2 (4.5-11.0) X10^3/uL RBC 4.01 (4.0-5.2) X10^6/uL Hgb 12.9 (12.0-16.0) g/dL Hct 38.2 (36-46) % MCV 95.3 (80-100) fL MCH 32.3 (26-34) PG MCHC 33.9 (30-36) % RDW 11.6 (11.6-14.8) % Plt Count 184 (150-400) X10^3/uL Neut % (Auto) 60.6 (50-75) % Lymph % (Auto) 27.4 (25-40) % Burnet % (Auto) 8.2 (3-14) % Eos % (Auto) 3.1 (2-4) % Baso % (Auto) 0.7 (0-2) % Neut # (Auto) 4300 (9313-0466) /uL Lymph # (Auto) 2000 (0806-9556) /uL Burnet # (Auto) 600 (0-900) /uL Eos # (Auto) 200 (0-450) /uL Baso # (Auto) 100 (0-100) /uL Sodium 140 (137-145) mmol/L Potassium 4.2 (3.4-5.1) mmol/L Chloride 104 (98-107) mmol/L Carbon Dioxide 25 (22-32) mmol/L BUN 14 (7-17) mg/dL Creatinine 0.70 (0.52-1.04) mg/dL Estimated GFR > 60.0 (>60) mL/min BUN/Creatinine Ratio 20.0 (6-22) Glucose 77 (70-100) mg/dL Calcium 9.7 (8.4-10.2) mg/dL TSH (0.47-4.68) uIU/mL Urine Opiates Screen Negative (Negative) Ur Oxycodone Screen Negative (Negative) Urine Methadone Screen Negative (Negative) Ur Barbiturates Screen Negative (Negative) U Tricyclic Antidepress Negative (Negative) Ur Phencyclidine Scrn Negative (Negative) Ur Amphetamines Screen Negative (Negative) U Methamphetamines Scrn Negative (Negative) Ur MDMA Scrn (Ecstasy) Negative (Negative) U Benzodiazepines Scrn Negative (Negative) Urine Cocaine Screen Negative (Negative) U Marijuana (THC) Screen Positive H (Negative) Ethyl Alcohol < 10 ( - 10) mg/dL 08/20/19 Range/Units 14:45 WBC (4.5-11.0) X10^3/uL RBC (4.0-5.2) X10^6/uL Hgb (12.0-16.0) g/dL Hct (36-46) % MCV (80-100) fL MCH (26-34) PG MCHC (30-36) % RDW (11.6-14.8) % Plt Count (150-400) X10^3/uL Neut % (Auto) (50-75) % Lymph % (Auto) (25-40) % Burnet % (Auto) (3-14) % Eos % (Auto) (2-4) % Baso % (Auto) (0-2) % Neut # (Auto) (6663-8546) /uL Lymph # (Auto) (0834-6454) /uL Burnet # (Auto) (0-900) /uL Eos # (Auto) (0-450) /uL Baso # (Auto) (0-100) /uL Sodium (137-145) mmol/L Potassium (3.4-5.1) mmol/L Chloride (98-107) mmol/L Carbon Dioxide (22-32) mmol/L BUN (7-17) mg/dL Creatinine (0.52-1.04) mg/dL Estimated GFR (>60) mL/min BUN/Creatinine Ratio (6-22) Glucose (70-100) mg/dL Calcium (8.4-10.2) mg/dL TSH 1.72 (0.47-4.68) uIU/mL Urine Opiates Screen (Negative) Ur Oxycodone Screen (Negative) Urine Methadone Screen (Negative) Ur Barbiturates Screen (Negative) U Tricyclic Antidepress (Negative) Ur Phencyclidine Scrn (Negative) Ur Amphetamines Screen (Negative) U Methamphetamines Scrn (Negative) Ur MDMA Scrn (Ecstasy) (Negative) U Benzodiazepines Scrn (Negative) Urine Cocaine Screen (Negative) U Marijuana (THC) Screen (Negative) Ethyl Alcohol ( - 10) mg/dL Urine Dip Bedside Urine Glucose Negative Bedside Urine Bilirubin - Negative Bedside Urine Ketone +/- 5 Urine Specific [place] 1.030 Bedside Urine Occult Blood - Negative Bedside Urine pH 5.5 Bedside Urine Protein - Negative Bedside Urine Urobilinogen - Negative Bedside Urine Nitrite - Negative Bedside Urine Leukocytes - Negative Esterase Discharge Plan Departure Patient Disposition: Home Clinical Impression: Encounter for medication refill Depression Qualifiers: Depression Type: unspecified Qualified Code(s): F32.9 - Major depressive disor jessica, single episode, unspecified Discharge Date/Time: 05/09/19 16:15 Interventions: ED Discharge Assessment Last Done: 05/09/19 16:15 Activity Restrictions/Additional Instructions: You have been diagnosed with [history of depression/anxiety. You're here for medication refill for Zoloft. Your lab test today looks unremarkable. Your symptoms are related to medication withdrawal at this time]. What to do: *Take your medications as directed. I am refilling her Zoloft for 1 month. Please start at 75 mg for a week and increase dose to 150 mg there is no significant side effect. *Follow up with your primary care provider provider Nilesh at [facility] in [place] next week, call for an appointment. Let them know you were seen in the ED and that we asked you to be seen in follow up. *Return to ED if you have any new, worsening, or concerning symptoms, such as [worsening symptoms for chest pain, breathing difficulty, dizziness, hallucination, suicidal ideation, homicidal ideation, or any acute concerns]. Prescriptions: New sertraline 100 mg tablet 100 mg PO Q24H Qty: 45 RF: 0 No Action albuterol sulfate 90 mcg/actuation HFA aerosol inhaler 2 puff INHALATION Q4-6H PRN (Reason: shortness of breath) Qty: 8.5 RF: 1 sertraline [Zoloft] 50 mg Tablet 150 mg PO DAILY RF: 0 <Anum Moore DO - Last Filed: 05/10/19 08:19> Cosign ED Attending Albertoature Attestation: I was immediately available in the depart ment for consultation. Documentation has been reviewed. I agree with assessment and plan.
[2019-05-09 15:00] LABS: Add Manual Diff / Slide Review NO; Basophils Absolute Auto 100 /uL (0-100); Basophils Percent Auto 0.7 % (0-2); Eosinophils Absolute Auto 200 /uL (0-450); Eosinophils Percent Auto 3.1 % (2-4); Hematocrit 38.2 % (36-46); Hemoglobin 12.9 g/dL (12.0-16.0); Lymphocytes Absolute Auto 2000 /uL (1100-4500); Lymphocytes Percent Auto 27.4 % (25-40); Mean Corpuscular HGB Conc 33.9 % (30-36); Mean Corpuscular Hemoglobin 32.3 PG (26-34); Mean Corpuscular Volume 95.3 fL (80-100); Monocytes Absolute Auto 600 /uL (0-900); Monocytes Percent Auto 8.2 % (3-14); Neutrophils Absolute Auto 4300 /uL (1500-7000); Neutrophils Percent Auto 60.6 % (50-75); Platelet Count 184 X10^3/uL (150-400); Red Blood Cell Count 4.01 X10^6/uL (4.0-5.2); Red Cell Distribution Width 11.6 % (11.6-14.8); White Blood Cell Count 7.2 X10^3/uL (4.5-11.0)
[2019-05-09 15:03] LABS: Urine Amphetamines Negative (Negative); Urine Barbiturates Negative (Negative); Urine Benzodiazepines Negative (Negative); Urine Cocaine Negative (Negative); Urine MDMA Negative (Negative); Urine Methadone Negative (Negative); Urine Methamphetamines Negative (Negative); Urine Morphine/Opi cutoff 2000 Negative (Negative); Urine Oxycodone Negative (Negative); Urine Phencyclidine Negative (Negative); Urine Tetrahydrocannabinol Positive (Negative); Urine Tricyclic Antidepressant Negative (Negative)
[2019-05-09 15:14] LABS: Blood Urea Nitrogen 14 mg/dL (7-17); Calcium 9.7 mg/dL (8.4-10.2); Carbon Dioxide 25 mmol/L (22-32); Chloride 104 mmol/L (98-107); Estimated Glomerular Filt Rate > 60.0 mL/min (>60); Ethanol (ETOH) < 10 mg/dL; Glucose 77 mg/dL (70-100); HEMOLYSIS < 15 (0-50); Potassium 4.2 mmol/L (3.4-5.1); Sodium 140 mmol/L (137-145)
[2019-05-09 15:20] VITALS: BP 129/70; PULSE 65; O2SAT 100
[2019-05-09] MEDS: LORazepam 0.5 MG TABLET PO (15:30)
[2019-05-09 15:50] LABS: Thyroid Stimulating Hormone 1.72 uIU/mL (0.47-4.68)
== END 2019-05-09 16:15 | disposition home or self-care (01) ==
PROVIDERS: Emergency Provider Nurse Practitioner Family
DX: Z76.0 Encounter for issue of repeat prescription (principal); F32.9 Major depressive disorder, single episode, unspecified
CPT/HCPCS: 36415; 80048; 80305; 80320; 81003; 81025; 84443; 85025; 99282; 99283

== ENCOUNTER 2020-01-09 15:31 | Emergency (ER) | payer OTHER, SELFPAY ==
[2020-01-09 15:34] VITALS: BP 118/62; PULSE 83; RESP 12; TEMP 36.6; O2SAT 99
--- NOTE | 2020-01-09 15:40 | DI.RAD.S_ITS ---
PROCEDURE: XR WRIST LT MIN 3V INDICATIONS: injury TECHNIQUE: 4 views of the wrist were acquired. COMPARISON: [facility], CR, XR HAND LT MIN 3V, 01/09/2020, 15:36. FINDINGS: Bones: No fractures or dislocations. No suspicious bony lesions. Scaphoid view: No navicular fractures are seen. Soft tissues: No suspicious soft tissue calcifications. IMPRESSION: No displaced fractures are seen. If there is snuffbox tenderness (or other clinical suspicion for a fracture not seen on these images) then a repeat examination would be recommended in 10 to 14 days, following splinting. If there is strong clinical suspicion for internal derangement of the wrist, please consider a dedicated MRI for further evaluation (assuming that there is no contraindication to MRI). If there is strong clinical concern for a ligamentous abnormality, this should be performed according to the MR arthrogram protocol. Dictated by: Ariel Rojas M.D. on 01/09/2020 at 14:57 Approved by: Ariel Rojas M.D. on 01/09/2020 at 14:58
--- NOTE | 2020-01-09 15:41 | DI.RAD.S_ITS ---
PROCEDURE: XR HAND LT MIN 3V INDICATIONS: injury TECHNIQUE: 3 views of the hand(s) acquired. COMPARISON: [facility], CR, XR WRIST LT MIN 3V, 01/09/2020, 15:36. FINDINGS: Bones: No fractures or dislocations. Carpal bones are normally aligned. No suspicious bony lesions. Soft tissues: No suspicious soft tissue calcifications. IMPRESSION: No displaced fractures are seen. Dictated by: Ariel Rojas M.D. on 01/09/2020 at 14:57 Approved by: Ariel Rojas M.D. on 01/09/2020 at 14:57
--- NOTE | 2020-01-09 22:06 | ED_ITS ---
HPI - Extremity Injury (Upper) <FADY Baker - Last Filed: 01/09/20 22:23> General Chief Complaint: Extremity Injury, Upper Stated Complaint: Thinks she broke L hand 48hrs ago Time Seen by Provider: 01/09/20 15:36 Source: patient Mode of arrival: Ambulatory Limitations: no limitations History of Present Illness HPI narrative: This is a 24-year-old female, with chief complain of left hand and wrist pain. When patient was coming out of the hand standing position 2 days ago, she accidentally hyper extended left hand and wrist. Patient right dominant hand. Patient reports decreased strength and difficulty grasping objects with affected hand, decreased range of motion with flexion, extension, supination, pronation and radial and ulna deviation due to increased pain. Patient reports hypersensitivity when affected side is touched. She had used [id number] Tylenol and Motrin for pain management. Also she had used cool packs on affected site for last couple of days and has been using thumb spica splint that she had at home which has been helping with discomfort. 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 LMP about 1 week ago and is not concerned for . 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 Related Data Home Medications Medication Instructions Recorded Confirmed sertraline [Zoloft] 150 mg PO DAILY 05/09/19 05/09/19 Previous Rx's Medication Instructions Recorded albuterol sulfate 90 mcg/actuation 2 puff INHALATION Q4-6H PRN #8.5 08/01/18 aerosol inhaler gram sertraline 100 mg PO Q24H #45 tab 05/09/19 Allergies Allergy/AdvReac Type Severity Reaction Status Date / Time tramadol Allergy Severe Vomiting, Verified 05/09/19 14:13 Diarrhea amoxicillin Allergy Hives Verified 05/09/19 14:13 azithromycin Allergy Hives Verified 05/09/19 14:13 Review of Systems <FADY Baker - Last Filed: 01/09/20 22:23> Review of Systems Narrative: General: Denies fever, chills, fatigue, malaise, sweats. HEENT: Denies sinus pain, ear pain, sore throat, difficulty swallowing, dizziness. Respiratory: Denies dyspnea, cough, wheezing, hemoptysis, sputum. Cardiovascular: Denies chest pain, palpitations, orthopnea, edema. Gastrointestinal: Denies nausea, vomiting, abdominal pain, diarrhea, constipation, melena. : Denies dysuria, frequency, incontinence, hematuria, urinary retention. Musculoskeletal: See HPI Skin: Denies rash, skin lesions, or other. Neurologic: Denies weakness, headache, numbness, change in speech, confusion, seizures, incoordination. Psychiatric: No concerning psychosocial issues. 12-point review of systems is negative except for those stated above. Patient History <FADY Baker - Last Filed: 01/09/20 22:23> Medical History ADHD (Acute) Anxiety (Acute) Depression (Acute) Lymphangioma, any site (Acute) Surgical History H/O hand surgery (Acute) Social History Smoking Status: Never smoker Smoking Status: Never smoker alcohol intake frequency: 0-2 drinks per day Substance Use Type: does not use Exam <FADY Baker - Last Filed: 01/09/20 22:23> Narrative Exam Narrative: GEN: Alert, oriented x 3, well appearing and nourished, and in no acute distress. Head: Normal cephalic, atraumatic. No scalp or temporal tenderness, palpable mass or rash. EYES: Pupils are equal, round, and reactive to light and accommodation. Extraocular muscles are intact bilaterally. There is no subconjunctival hemorrhage, exudate and sclera non-icteric. ENT: Hearing grossly intact. Nose without bleeding, purulent discharge. Mucous membrane moist, no mucosal lesion. Airway patent. Neck: Trachea in midline. No JVD, non-tender without lymphadenopathy. No masses or thyroid megaly. Supple, non-tender and no meningeal signs. CARDIAC: No peripheral edema, cyanosis or pallor. Capillary refill is less than 2 seconds. RESPIRATORY: Lungs are clear to auscultate bilaterally. No cough, wheezes, rales, or rhonchi. No stridor, respiratory distress, increase work of breathing, or accessary muscle used. ABD: Abdomen nonobese, nondistended. SKIN: Warm, dry, normal color for patient. No erythema, lesions or rash over visible areas. BACK: Nontender without deformity or crepitance. No flank tenderness. NEUROLOGICAL: Alert and oriented to place, time and person. Sensation and motor function intact bilaterally. No facial droops, dysphasia. PSYCHIATRIC: Good judgement and reason, without hallucinations, abnormal affect or abnormal behaviors during the examination. Initial Vital Signs Initial Vital Signs: Vital Signs Temperature 97.8 F 01/09/20 15:34 Pulse Rate 83 01/09/20 15:34 Respiratory Rate 12 01/09/20 15:34 Blood Pressure 118/62 01/09/20 15:34 Pulse Oximetry 99 01/09/20 15:34 Extrem Left upper extremity: elbow/forearm Details: normal to inspection; no tenderness, wrist Details: normal to inspection, tenderness, swelling, abnormal ROM Details: pain with active ROM and pain with passive ROM, normal vascular exam and radial pulse present; no unusual warmth, no abrasions, no lacerations, no ecchymosis, no crepitus, no foreign bodies and no deformity and hand Details: normal to inspection, normal capillary refill, neuromotor exam abnormal Details: wrist extension abnormal, neurosensory exam normal, tendon exam abnormal, vascular exam Details: radial pulse present and normal capillary refill, abnormal ROM of finger Details: pain with active ROM and pain with passive ROM and swelling Location: of the dorsal hand; no unusual warmth, no abrasions, no lacerations, no ecchymosis and no crepitus <Ana Rogers MD - Last Filed: 01/16/20 07:19> Initial Vital Signs Initial Vital Signs: Vital Signs Temperature 97.8 F 01/09/20 15:34 Pulse Rate 83 01/09/20 15:34 Respiratory Rate 12 01/09/20 15:34 Blood Pressure 118/62 01/09/20 15:34 Pulse Oximetry 99 01/09/20 15:34 Scores <FADY Baker - Last Filed: 01/09/20 22:23> GCS Belkis coma scale eye opening: Spontaneous Belkis coma scale verbal response: Orientated [place] coma scale motor response: Obey commands Belkis coma scale total score: 15 Course <FADY Baker - Last Filed: 01/09/20 22:23> Orders Ordered: ED Orders 01/09/20 15:40 XR wrist LT min 3V Stat 01/09/20 15:41 XR hand LT min 3V Stat Vital Signs Vital signs: Vital Signs - 8 hr 01/09/20 15:34 Temperature 97.8 F Pulse Rate 83 Respiratory Rate 12 Blood Pressure 118/62 Pulse Oximetry 99 <Ana Rogers MD - Last Filed: 01/16/20 07:19> Orders Ordered: ED Orders 01/09/20 15:40 XR wrist LT min 3V Stat 01/09/20 15:41 XR hand LT min 3V Stat Vital Signs Vital signs: Vital Signs - 8 hr 01/09/20 15:34 Temperature 97.8 F Pulse Rate 83 Respiratory Rate 12 Blood Pressure 118/62 Pulse Oximetry 99 MDM - Extremity Injury (Upper) <FADY Baker - Last Filed: 01/09/20 22:23> Differential Diagnosis Differential diagnosis: Likely sprain and strain of wrist, fracture of wrist, fracture of hand and other (Sprain hand) Medical Records Attestation: I reviewed the patient's medical records. Imaging Data XR-Wrist LT: Radiologist's Impression: [address] [address] XRay Report Signed Patient: Cindy Torres LMR#: [id number] : 1995Acct:[id number] Age/Sex: te of Service: 01/09/20 Loc: ED Accession Number: [id number] Procedure: XR wrist LT min 3V Ordering Provider: Mookie Mei PROCEDURE: XR WRIST LT MIN 3V INDICATIONS: injury TECHNIQUE: 4 views of the wrist were acquired. COMPARISON: [facility], ARTEMIO, XR HAND LT MIN 3V, 01/09/2020, 15:36. FINDINGS: Bones: No fractures or dislocations. No suspicious bony lesions. Scaphoid view: No navicular fractures are seen. Soft tissues: No suspicious soft tissue calcifications. IMPRESSION: No displaced fractures are seen. If there is snuffbox tenderness (or other clinical suspicion for a fracture not seen on these images) then a repeat examination would be recommended in 10 to 14 days, following splinting. If there is strong clinical suspicion for internal derangement of the wrist, please consider a dedicated MRI for further evaluation (assuming that there is no contraindication to MRI). If there is strong clinical concern for a ligamentous abnormality, this should be performed according to the MR arthrogram protocol. Dictated by: Ariel Rojas M.D. on 01/09/2020 at 14:57 Approved by: Ariel Rojas M.D. on 01/09/2020 at 14:58 XR-Hand LT: Radiologist's Impression: [address] [address] XRay Report Signed Patient: Cindy Torres LMR#: [id number] : 1995Acct:[id number] Age/Sex: 24 / FDate of Service: 01/09/20 Loc: ED Accession Number: [id number] Procedure: XR hand LT min 3V Ordering Provider: Mookie Mei PROCEDURE: XR HAND LT MIN 3V INDICATIONS: injury TECHNIQUE: 3 views of the hand(s) acquired. COMPARISON: [facility], CR, XR WRIST LT MIN 3V, 01/09/2020, 15:36. FINDINGS: Bones: No fractures or dislocations. Carpal bones are normally aligned. No suspicious bony lesions. Soft tissues: No suspicious soft tissue calcifications. IMPRESSION: No displaced fractures are seen. Dictated by: Ariel Rojas M.D. on 01/09/2020 at 14:57 Approved by: Ariel Rojas M.D. on 01/09/2020 at 14:57 [facility] Narrative Medical decision making narrative: This is a 24 year female who presents to ED with left wrist and hand pain with limited range of motion due to pain after she accidentally hyper extended affected wrist 2 days ago after coming off the hand standing motion. Patient reports intact sensation. Radial pulse and cap refill is intact in left hand. X-ray test on wrist and hand does not show acute findings such as fractures or dislocation. Patient advised continue to use her thumb spica splint and to take [id number] Tylenol and or Motrin as needed for discomfort with gentle stretching and exercise for hand/finger strength when acute pain subsides. Informed patient that x-ray test does not show ligament and tendon injuries. Return precautions were discussed with the patient and patient advised to follow-up with PCP if pain persists greater 10 days to 2 weeks. Patient verbalized understanding in agreement with treatment plan. Discharge Plan Departure Patient Disposition: Home Clinical Impression: Sprain and strain of wrist, Sprain and strain of hand Discharge Date/Time: 01/09/20 16:52 Instructions: DI for Wrist Sprain, DI for Hand Injury Activity Restrictions/Additional Instructions: You have been diagnosed with [left hand/wrist strain and sprain. X-ray test on wrist and hand does not show acute findings such as fractures or dislocation.]. What to do: *Take your medications as directed. Please take Tylenol and or Motrin as needed for discomfort. Tylenol 650 up mg up to 3 to 4 times a day as needed for discomfort. Ibuprofen 400 mg up to 3 times a day as needed with food. Use the wrist splint for discomfort. *Follow up with your primary care provider in 2-3 days, call for an appointment. Let them know you were seen in the ED and that we asked you to be seen in follow up. If pain persists greater than 2 weeks, consider repeating imaging tests. *Return to ED if you have any new, worsening, or concerning symptoms, such as [increasing tingling/numbness/weakness on affected hand/wrist, increasing pain, chest pain, breathing difficulty, unable to tolerate fluids or any acute concerns.]. Prescriptions: No Action albuterol sulfate 90 mcg/actuation HFA aerosol inhaler 2 puff INHALATION Q4-6H PRN (Reason: shortness of breath) Qty: 8.5 RF: 1 sertraline [Zoloft] 50 mg Tablet 150 mg PO DAILY RF: 0 sertraline 100 mg tablet 100 mg PO Q24H Qty: 45 RF: 0 Referrals: [facility] [Outside] Agustin Davidson MD [Physician] - <Ana Rogers MD - Last Filed: 01/16/20 07:19> Cosign ED Attending Cosbereketature Attestation: I was immediately available in the department for consultation throughout this patient's visit. I agree with documentation as above. Ana Rogers MD
== END 2020-01-09 16:52 | disposition home or self-care (01) ==
PROVIDERS: Emergency Provider Nurse Practitioner Family
DX: S63.92XA Sprain of unspecified part of left wrist and hand, initial encounter (principal); S66.912A Strain of unspecified muscle, fascia and tendon at wrist and hand level, left hand, initial encounter
CPT/HCPCS: 73110; 73130; 99283

== ENCOUNTER → 2020-09-22 09:40 | Outpatient (CLI) | payer OTHER, SELFPAY ==
[2020-09-22 10:24] LABS: COVID19 -Nasal RAPID Negative (Negative)
[2020-09-22 10:44] LABS: Influenza A - CEPHEID Flu A NEGATIVE (NEGATIVE); Influenza B - CEPHEID Flu B NEGATIVE (NEGATIVE)
== END ==
PROVIDERS: Visit Provider Physician Assistant
DX: Z20.822 Contact with and (suspected) exposure to COVID-19 (principal); R52 Pain, unspecified; J02.9 Acute pharyngitis, unspecified
CPT/HCPCS: 87070; 87502; 87635

== ENCOUNTER 2021-03-21 21:46 | Emergency (ER) | payer OTHER, SELFPAY ==
[2021-03-21 21:47] VITALS: BP 121/59; PULSE 102; RESP 16; TEMP 37.7; O2SAT 100; BMI 26.4
--- NOTE | 2021-03-21 21:52 | DI.US.S_ITS ---
PROCEDURE: US OB <= 14 WEEKS FETUS INDICATIONS: SPOTTING OUTSIDE/PRIOR DATING DATA: Last menstrual period (LMP): 01/30/21 LMP-based estimated date of delivery (TANGELA): 11/06/21. First dating scan (date and location): This study. Estimated date of delivery (TANGELA) from first dating scan: 11/11/21. TECHNIQUE: Real-time scanning was performed of the fetus and maternal pelvic organs, with image documentation. Endovaginal scanning was also performed to better visualize the fetus and maternal ovaries. COMPARISON: None. FINDINGS: Embryo: [place]-rump length 7 mm correlates with a gestational age of 6 weeks 3 days, +/-5 days. cardiac activity at 108 beats per minute is observed. Heart rate: 108 beats per minute. Measurement variability in dating: +/- 4 weeks by LMP, +/- 7 days by mean sac diameter (use before 6 weeks gestation if crown-rump length not able to be measured), +/- 5 days by crown-rump length (up to 8 weeks 6 days gestation), +/- 7 days by crown-rump length (up to 13 weeks 6 days gestation). Maternal organs: Ovaries normal considering gestational status . IMPRESSION: Single living intrauterine gestation, with delivery date projected to be centered on 11/11/21. No perigestational hemorrhage is found. Dictated by: Jose King M.D. on 03/22/2021 at 9:17 Approved by: Jose King M.D. on 03/22/2021 at 9:18
[2021-03-21 22:16] LABS: Add Manual Diff / Slide Review NO; Basophils Absolute Auto 100 /uL (0-100); Basophils Percent Auto 0.5 % (0-2); Eosinophils Absolute Auto 200 /uL (0-450); Eosinophils Percent Auto 2.1 % (2-4); Hematocrit 37.8 % (36-46); Hemoglobin 12.6 g/dL (12.0-16.0); Lymphocytes Absolute Auto 2100 /uL (1100-4500); Lymphocytes Percent Auto 18.3 % (25-40); Mean Corpuscular HGB Conc 33.3 % (30-36); Mean Corpuscular Hemoglobin 31.3 PG (26-34); Monocytes Absolute Auto 900 /uL (0-900); Monocytes Percent Auto 7.9 % (3-14); Neutrophils Absolute Auto 8200 /uL (1500-7000); Neutrophils Percent Auto 71.2 % (50-75); Platelet Count 215 X10^3/uL (150-400); Red Blood Cell Count 4.02 X10^6/uL (4.0-5.2); White Blood Cell Count 11.5 X10^3/uL (4.5-11.0)
[2021-03-21 22:24] LABS: Alanine Aminotransferase 16 IU/L (<35); Albumin 4.4 g/dL (3.5-5.0); Albumin Globulin Ratio 1.6 (1.0-2.8); Alkaline Phosphatase 67 U/L (38-126); Aspartate Aminotransferase 21 IU/L (14-36); BUN Creatinine Ratio 19.4 (6-22); Bilirubin Total 0.4 mg/dL (0.2-1.3); Blood Urea Nitrogen 12 mg/dL (7-17); Calcium 9.4 mg/dL (8.4-10.2); Carbon Dioxide 25 mmol/L (22-32); Chloride 103 mmol/L (98-107); Estimated Glomerular Filt Rate > 60.0 mL/min (>60); Globulin 2.7 g/dL (1.7-4.1); Glucose 107 mg/dL (70-100); HEMOLYSIS < 15 (0-50); Potassium 4.1 mmol/L (3.4-5.1); Sodium 136 mmol/L (137-145); Total Protein 7.1 g/dL (6.3-8.2)
[2021-03-21 22:42] LABS: HCG Quantitative /Beta subunit 77852 mIU/mL
--- NOTE | 2021-03-21 23:25 | ED_ITS ---
HPI - Female Genitourinary General Chief complaint: OB/Uterine Contractions Stated complaint: Miscarriage Time Seen by Provider: 03/21/21 22:05 History of Present Illness HPI Narrative: 25-year-old female nonsmoker with noncontributory medical history presents with her and a chief complaint of some painless vaginal spotting over the course of the day. She is a at 6 weeks and symptoms started earlier today. She denies dizziness, weakness or lightheadedness. She denies any fever or chills. She denies nausea, vomiting or diarrhea. She is otherwise well and free of complaint Related Data Home Medications Medication Instructions Recorded Confirmed sertraline 50 mg tablet (Zoloft) 150 mg PO DAILY 05/09/19 02/24/21 Previous Rx's Medication Instructions Recorded albuterol sulfate 90 mcg/actuation 2 puff INHALATION Q4-6H PRN #8.5 08/01/18 aerosol inhaler gram sertraline 100 mg tablet 100 mg PO Q24H #45 tab 05/09/19 ondansetron 4 mg disintegrating 4 mg PO Q6-8H PRN #30 tab 09/22/20 tablet dicyclomine 10 mg capsule 20 mg PO TID PRN #9 cap 02/24/21 Allergies Allergy/AdvReac Type Severity Reaction Status Date / Time tramadol Allergy Severe Vomiting, Verified 02/24/21 13:14 Diarrhea amoxicillin Allergy Hives Verified 02/24/21 13:14 azithromycin Allergy Hives Verified 02/24/21 13:14 Review of Systems Constitutional Constitutional: Denies chills, Denies fatigue, Denies fever(s), Denies frequent falls, Denies lethargy and Denies weakness Eyes Eyes: Denies change in vision, Denies eye discharge, Denies irritation and Denies loss of vision ENT Ears, Nose, Mouth, and Throat: Denies change in voice, Denies dizziness, Denies neck pain, Denies sore throat and Denies throat swelling Cardiovascular Cardiovascular: Denies chest pain, Denies irregular heart rhythm, Denies light headedness, Denies palpitations, Denies dyspnea, Denies dyspnea on exertion and Denies orthopnea Respiratory Respiratory: Denies cough, Denies dyspnea, Denies dyspnea on exertion and Denies wheezing Gastrointestinal Gastrointestinal: Denies abdominal pain, Denies change in bowel habits, Denies diarrhea, Denies nausea and Denies vomiting Genitourinary Genitourinary: Reports hot flashes Musculoskeletal Musculoskeletal: Denies neck pain and Denies numbness Integumentary/Breasts Skin/Breast: Denies pruritus, Denies erythema, Denies rash and Denies wounds Neurologic Neurologic: Denies behavioral changes, Denies confusion, Denies dizziness, Denies frequent falls, Denies loss of vision, Denies numbness and Denies weakness Psychiatric Psychiatric: Denies anxiety, Denies behavioral changes, Denies confusion, Denies depression, Denies homicidal ideation and Denies suicidal ideation Endocrine Endocrine: Denies fatigue, Denies flushing and Denies palpitations Hematologic/Lymphatic Hematologic/Lymphatic: Denies easy bruising Allergic/Immunologic Allergic/Immunologic: Denies urticaria, Denies throat swelling and Denies wheezing Patient History Medical History (Updated 03/22/21 @ 00:00 by ) ADHD Anxiety Depression Lymphangioma, any site Surgical History H/O hand surgery alcohol intake frequency: 0-2 drinks per day Substance Use Type: does not use Exam Narrative Exam Narrative: GENERAL: [25] year old patient appears stated age. Well- developed patient, in mild distress. HEAD: Atraumatic. Normocephalic. EYES: Pupils equal round and reactive. Extraocular motions intact. No scleral icterus. No injection or drainage. ENT: Nose without bleeding, purulent drainage. Throat without erythema, tonsillar hypertrophy or exudate. Airway patent. NECK: Trachea midline. Non tender CARDIOVASCULAR: Regular rate and rhythm without murmurs, gallops, or rubs. RESPIRATORY: Clear to auscultation. Breath sounds equal bilaterally. No wheezes, rales, or rhonchi. GASTROINTESTINAL: Abdomen soft, non-tender, nondistended. EXTREMITIES: No edema or joint tenderness. BACK: Nontender without deformity or crepitance. No flank tenderness. NEURO: AOx3. SKIN: No rash or erythema of visible areas Initial Vital Signs Initial Vital Signs: Vital Signs Temperature 99.8 F H 03/21/21 21:47 Pulse Rate 102 H 03/21/21 21:47 Respiratory Rate 16 03/21/21 21:47 Blood Pressure 121/59 L 03/21/21 21:47 Pulse Oximetry 100 07/02/21 21:47 Course Orders Ordered: ED Orders 03/21/21 21:52 OB <= 14 weeks fetus Stat 03/21/21 22:00 ABO RH Type Stat Complete Blood Count AUTO DIFF Stat Comprehensive Metabolic Panel Stat HCG Quantitative /Beta subunit Stat Vital Signs Vital signs: Vital Signs - 8 hr 03/21/21 21:47 Temperature 99.8 F H Pulse Rate 102 H Respiratory Rate 16 Blood Pressure 121/59 L Pulse Oximetry 100 MDM - Female Genitourinary Lab Data Result diagrams: 03/21/21 22:00 03/21/21 22:00 Labs: Lab Results 03/21/21 03/21/21 03/21/21 Range/Units 22:00 22:00 22:00 WBC 11.5 H (4.5-11.0) X10^3/uL RBC 4.02 (4.0-5.2) X10^6/uL Hgb 12.6 (12.0-16.0) g/dL Hct 37.8 (36-46) % MCV 94.0 (80-100) fL MCH 31.3 (26-34) PG MCHC 33.3 (30-36) % RDW 12.0 (11.6-14.8) % Plt Count 215 (150-400) X10^3/uL Neut % (Auto) 71.2 (50-75) % Lymph % (Auto) 18.3 L (25-40) % Taney % (Auto) 7.9 (3-14) % Eos % (Auto) 2.1 (2-4) % Baso % (Auto) 0.5 (0-2) % Neut # (Auto) 8200 H (4501-2484) /uL Lymph # (Auto) 2100 (9764-4765) /uL Taney # (Auto) 900 (0-900) /uL Eos # (Auto) 200 (0-450) /uL Baso # (Auto) 100 (0-100) /uL Sodium 136 L (137-145) mmol/L Potassium 4.1 (3.4-5.1) mmol/L Chloride 103 (98-107) mmol/L Carbon Dioxide 25 (22-32) mmol/L BUN 12 (7-17) mg/dL Creatinine 0.62 (0.52-1.04) mg/dL Estimated GFR > 60.0 (>60) mL/min BUN/Creatinine Ratio 19.4 (6-22) Glucose 107 H (70-100) mg/dL Calcium 9.4 (8.4-10.2) mg/dL Total Bilirubin 0.4 (0.2-1.3) mg/dL AST 21 (14-36) IU/L ALT 16 (<35) IU/L Alkaline Phosphatase 67 (38-126) U/L Total Protein 7.1 (6.3-8.2) g/dL Albumin 4.4 (3.5-5.0) g/dL Globulin 2.7 (1.7-4.1) g/dL Albumin/Globulin Ratio 1.6 (1.0-2.8) HCG, Quant 62349 mIU/mL Blood Type O Positive MDM Narrative Medical decision making narrative: Patient is at 6 weeks with minimal vaginal bleeding and spotting. She has no pain, denies dizziness, weakness or lightheadedness, has stable vitals and denies any fever. Ultrasound is reassuring and rules out ectopic. Patient has close follow-up scheduled. She has been given return precautions and questions have been answered to her apparent satisfaction Discharge Plan Departure Patient Disposition: Home Clinical Impression: Threatened Instructions: DI for Vaginal Bleeding During Activity Restrictions/Additional Instructions: *You have been diagnosed with [spotting and bleeding during 1st trimester. Ultrasound is very reassuring as are labs. This could be early miscarriage but time will tell] *What to do: *Please continue to take your regular medications as directed. [ ] New medication prescriptions sent to your pharmacy: [ ] [ ] New medication written as a paper prescription [x ] No new medications given *Please follow up with your OB doctor in 2-3 days, call for an appointment. Let them know you were seen in the Emergency Department and that we ask that you be seen in follow up. We will electronically transmit a record of today's note if your PCP is in our system *If you do not have a primary care provider please contact the [facility] Resource line at [phone]. They will ask some questions about your medical history and help get you set up with a doctor in the community. *Return to Emergency Department if you should have any new, worsening or concerning symptoms, such as [fever greater than 101 F, shaking chills, worsening pain, persistent vomiting, bleeding through a pad or more per hour, or other bothersome symptoms] Prescriptions: No Action albuterol sulfate 90 mcg/actuation HFA aerosol inhaler 2 puff INHALATION Q4-6H PRN (Reason: shortness of breath) Qty: 8.5 RF: 1 ondansetron 4 mg tablet,disintegrating 4 mg PO Q6-8H PRN (Reason: nausea and vomiting) Qty: 30 RF: 0 dicyclomine 10 mg capsule 20 mg PO TID PRN (Reason: cramps/diarhea) Qty: 9 RF: 0 sertraline [Zoloft] 50 mg Tablet 150 mg PO DAILY RF: 0 sertraline 100 mg tablet 100 mg PO Q24H Qty: 45 RF: 0 Referrals: Miscellaneous,Doctor, MD [Primary Care Provider] -
== END 2021-03-22 | disposition home or self-care (01) ==
PROVIDERS: Emergency Provider Emergency Medicine
DX: O20.0 Threatened abortion (principal); Z3A.01 Less than 8 weeks gestation of pregnancy
CPT/HCPCS: 76801; 76817; 80053; 84702; 85025; 86900; 86901; 99283; 99284

== ENCOUNTER → 2021-06-24 11:42 | Outpatient (CLI) | payer OTHER, SELFPAY ==
--- NOTE | 2021-06-24 11:43 | DI.US.S_ITS ---
PROCEDURE: US OB >= 14 WEEKS FETUS INDICATIONS: ANATOMY SCREENING. OUTSIDE/PRIOR DATING DATA: Last menstrual period (LMP): 01/30/2021 LMP-based estimated date of delivery (TANGELA): 11/06/2021 First dating scan (date and location): 03/21/2021 at [facility] Estimated date of delivery (TANGELA) from first dating scan: 11/11/2021 TECHNIQUE: Real-time scanning was performed of the fetus, with image documentation and biometric measurements. Endovaginal scanning: Not performed. COMPARISON: [facility], , OB <= 14 WEEKS FETUS, 03/21/2021, 22:26. FINDINGS: General: A single living intrauterine gestation is present. Presentation: Variable Placenta: Placental position is posterior, without previa. Amniotic fluid index: 10.4 cm, normal range is 5-24 cm. Largest pocket is 3.1 cm. heart rate: 143 beats per minute. Maternal cervical canal: 3.3 cm long. Normal lower limit is 2.5 cm. biometrics: Biparietal diameter: 4.4 cm, 19 weeks 3 days Head circumference: 16.7 cm, 19 weeks 2 days Abdominal circumference: 14.3 cm, 19 weeks 5 days Femur length: 3 cm, 19 weeks 2 days Estimated gestational age from initial scan: 20 weeks 0 days Composite gestational age from present scan: 19 weeks 3 days Estimated weight and percentile: 293 g, 18th percentile Measurement variability for biometric dating: +/- 7 days from 14 weeks to 15 weeks 6 days gestation, +/- 10 days from 16 weeks to 21 weeks 6 days gestation, +/- 2 weeks from 22 weeks to 27 weeks 6 days gestation, +/- 3 weeks for 28 weeks gestation or later. weight reference: 4500 g or EFW >90/95% is considered macrosomia or large for gestational age. EFW <10% is small for gestational age. EFW 5% or less is considered intra-uterine growth restriction. Anatomic survey: Neuro: Ventricles are non-dilated at less than 10 mm. Cisterna magna is normal at 3-11 mm. Cerebellum is normal in size and morphology. Nuchal skin fold: Normal at less than 6 mm between 14-21 weeks gestational age. Face: Nose and lips, facial profile are normal. Spine: No evidence for spina bifida. Heart: 4-chambered heart is present. The ventricular outflow tracts are not well visualized. Diaphragm: Diaphragm is intact. Stomach: Left-sided stomach is present. Kidneys: No hydronephrosis. Normal is less than 5 mm in 2nd trimester, less than 7 mm in 3rd trimester. Cord: 3-vessel cord has orthotopic insertion. Bladder: Normal in size. Extremities: All 4 extremities identified. IMPRESSION: 1. Single live intrauterine . 2. Ventricular outflow tracts are suboptimally visualized. Recommend follow-up. 3. Otherwise normal anatomic survey. Dictated by: Dhiraj Lane M.D. on 06/24/2021 at 16:01 Approved by: Dhiraj Lane M.D. on 06/24/2021 at 16:09
== END ==
PROVIDERS: Referring Provider Family Medicine; Visit Provider Family Medicine
DX: Z36.89 Encounter for other specified antenatal screening (principal); Z3A.19 19 weeks gestation of pregnancy
CPT/HCPCS: 76811

== ENCOUNTER → 2021-08-29 07:47 | Outpatient (CLI) | payer OTHER, SELFPAY ==
--- NOTE | 2021-08-29 07:47 | DI.US.S_ITS ---
PROCEDURE: US OB LIMITED INDICATIONS: EFW; RE-EVALUATE OUTFLOWS OUTSIDE/PRIOR DATING DATA: Last menstrual period (LMP): 01/30/21. LMP-based estimated date of delivery (TANGELA): 11/06/21. First dating scan (date and location): 03/21/21. Estimated date of delivery (TANGELA) from first dating scan: 11/11/21. The calculations are made using the ultrasound derived TANGELA of 11/11/21. TECHNIQUE: Real-time scanning was performed of the fetus, with image documentation and biometric measurements. Endovaginal scanning: No COMPARISON: [facility], OB >= 14 WEEKS FETUS, 06/24/2021, 12:24. [facility], OB <= 14 WEEKS FETUS, 03/21/2021, 22:26. FINDINGS: General: A single living intrauterine gestation is present. Presentation: Vertex. Placenta: Placental position is posterior , without previa. Amniotic fluid index: 9.9 cm, normal range is 5-24 cm. Single deepest vertical pocket is 3.9 cm. heart rate: 140 beats per minute. Maternal cervical canal: About 4.3 cm long. Normal lower limit is 2.5 cm. biometrics: Biparietal diameter: 7.5 cm, 30 weeks, 0 days Head circumference: 27.1 cm, 29 weeks, four days Abdominal circumference: 25.0 cm, 29 weeks, two days Femur length: 5.1 cm, 27 weeks, three days Clinically estimated gestational age: 29 weeks, three days Composite gestational age from present scan: 29 weeks, one day Estimated weight and percentile: 1276 g, 17th percentile Other: Four chambered heart and cardiac outflow tracts are seen and appear normal. IMPRESSION: 1. Single living intrauterine with appropriate growth since the prior study. 2. Four chambered heart and cardiac outflow tracts appear normal. This completes the anatomic survey. We strive to produce accurate, complete, and clear reports of imaging services. To assist us in improving patient care, this report was composed using standard report templates and voice recognition software. Therefore, it may contain abnormal punctuation, insertions and/or omissions. Occasional wrong-word or sound-alike substitutions may occur. Though we review the report and make efforts to correct it, we do recommend that the report be read carefully in proper context to recognize any text inaccuracies. Dictated by: Gillian Horton M.D. on 08/29/2021 at 10:32 Approved by: Gillian Horton M.D. on 08/29/2021 at 10:36
== END ==
PROVIDERS: Referring Provider Family Medicine; Visit Provider Family Medicine
DX: Z36.2 Encounter for other antenatal screening follow-up (principal); Z3A.29 29 weeks gestation of pregnancy
CPT/HCPCS: 76815

== ENCOUNTER → 2021-08-30 08:29 | Outpatient (CLI) | payer OTHER, SELFPAY ==
[2021-08-30 10:52] LABS: Hematocrit 31.5 % (36-46); Hemoglobin 10.7 g/dL (12.0-16.0)
[2021-08-30 11:21] LABS: GTT (PREG) 1 Hour PP 50gm Dose 88 mg/dL (76-139)
== END ==
PROVIDERS: Referring Provider Family Medicine; Visit Provider Family Medicine
DX: Z34.93 Encounter for supervision of normal pregnancy, unspecified, third trimester (principal); Z3A.28 28 weeks gestation of pregnancy
CPT/HCPCS: 36415; 82950; 85014; 85018

== ENCOUNTER 2021-09-30 12:18 | Outpatient (CLI) | payer OTHER, SELFPAY ==
--- NOTE | 2021-09-30 14:24 | PM.OBTRLD ---
Visit Information Visit Information Date of evaluation: 09/30/21 Primary OB Provider: Maria Del Carmen Ralph Reason for Evaluation: Yes non-stress test Vital Signs Vital Signs: Temperature 97.9? blood pressure 117/64 heart rate 65 PFSH Medical History Acne (~2009) ADHD (~2007) Allergic rhinitis Anxiety (~2007) Asthma (~2005) Carpal tunnel syndrome (~2019) Depression (~2013) Fracture of ischial tuberosity with delayed healing (~2011) Lymphangioma, any site Migraines (~2011) Post traumatic stress disorder (PTSD) (~2014) Trichomoniasis of vagina Surgical History Anesthesia H/O hand surgery (~1998) History of tonsillectomy and adenoidectomy (~02/24/07) Family History Father Depression IBS (irritable bowel syndrome) Anxiety Diverticulitis Skin cancer Mother History of prediabetes Gestational diabetes Family estrangement Mental health problem Obesity Hypertension Hyperlipidemia Grandfather Family estrangement Grandmother Depression Arthritis Hypertension Grandfather Cancer Pancreatic cancer Grandmother Cancer Breast cancer Colon cancer Sister Anxiety Depression Brother No problems noted. Sister Insulin dependent diabetes mellitus Sister Anxiety Social History marital status: (Legally - had to postpone the Ceremony due to Covid and Morning sickness.) household members: significant other and children (Ty has joint custody of an 18 month-old boy : every other weekend.) lives independently: Yes caregiver/support person: No pets and animals: Yes (Cat : indoor. 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 occupational exposures/hazards: Yes special amalia needs: No Smoking Status: Never smoker Smokeless tobacco user: dissolvable tobacco (Vapes occasionally.) quit status: quit date established (with diagnosis.) second hand exposure: No alcohol intake: former (pre- : Rare use ) substance use type: does not use and marijuana (Some use of edibles to manage nausea.) Evaluation Evaluation Baseline heart rate: 120 Variability: Moderate (11-25) monitor accelerations: Present Monitor Decelerations: Absent Contraction Frequency (minutes): 3 Uterine Contraction Intensity: Mild Category of Tracing: Reactive Diagnosis, Plan/Disposition Final Diagnosis (1) 34 weeks gestation of : Status: Acute Plan/Disposition Plan: 25-year-old at 34 weeks gestation. Low baseline with Doppler in clinic so sent for NST. NST reactive with a baseline of 120s. She had small contractions on the monitor though is not feeling them. In clinic as scheduled. OB Disposition: home
== END 2021-09-30 14:25 | disposition home or self-care (01) ==
LOC: LABOR 13:49 → OB 10-02 11:18
PROVIDERS: Referring Provider Family Medicine; Visit Provider Family Medicine
DX: O36.8330 Maternal care for abnormalities of the fetal heart rate or rhythm, third trimester, not applicable or unspecified (principal); Z3A.34 34 weeks gestation of pregnancy; L29.9 Pruritus, unspecified
CPT/HCPCS: 36415; 59025; 80053; 82239; G0378; G0379

== ENCOUNTER → 2021-09-30 12:34 | Outpatient (CLI) | payer BC, SELFPAY ==
[2021-09-30 13:43] LABS: Alanine Aminotransferase 13 IU/L (<35); Albumin 3.7 g/dL (3.5-5.0); Albumin Globulin Ratio 1.2 (1.0-2.8); Alkaline Phosphatase 152 U/L (38-126); Aspartate Aminotransferase 20 IU/L (14-36); BUN Creatinine Ratio 16.4 (6-22); Bilirubin Total 0.3 mg/dL (0.2-1.3); Blood Urea Nitrogen 9 mg/dL (7-17); Calcium 9.1 mg/dL (8.4-10.2); Carbon Dioxide 26 mmol/L (22-32); Chloride 104 mmol/L (98-107); Estimated Glomerular Filt Rate > 60.0 mL/min (>60); Glucose 89 mg/dL (70-100); HEMOLYSIS < 15 (0-50); Potassium 4.2 mmol/L (3.4-5.1); Sodium 134 mmol/L (137-145); Total Protein 6.7 g/dL (6.3-8.2)
[2021-10-01 11:24] LABS: Bile Acids 5.7 umol/L (0.0-10.0)
== END ==
PROVIDERS: Referring Provider Family Medicine; Visit Provider Family Medicine
DX: L29.9 Pruritus, unspecified (principal)
CPT/HCPCS: 36415; 80053; 82239

== ENCOUNTER → 2021-10-14 11:14 | Outpatient (CLI) | payer OTHER, SELFPAY ==
[2021-10-15 07:52] LABS: Strep Grp B PCR NEG for Grp B Strep
== END ==
PROVIDERS: Visit Provider Family Medicine
DX: Z3A.36 36 weeks gestation of pregnancy (principal)
CPT/HCPCS: 87653

== ENCOUNTER 2021-10-15 10:03 | Outpatient (CLI) | payer OTHER, SELFPAY ==
--- NOTE | 2021-10-15 10:39 | P.TNLD_ITS ---
Visit Information Visit Information Date of evaluation: 10/15/21 Primary OB Provider: Maria Del Carmen Ralph On-call OB Provider: Amy Sanchez Reason for Evaluation: Yes non-stress test non-stress test reason: decreased movement Vital Signs Vital Signs: BP 117/65, P 82, T98.5 [facility] Medical History Acne (~2009) ADHD (~2007) Allergic rhinitis Anxiety (~2007) Asthma (~2005) Carpal tunnel syndrome (~2019) Depression (~2013) Fracture of ischial tuberosity with delayed healing (~2011) Lymphangioma, any site Migraines (~2011) Post traumatic stress disorder (PTSD) (~2014) Trichomoniasis of vagina Surgical History Anesthesia H/O hand surgery (~1998) History of tonsillectomy and adenoidectomy (~02/24/07) Family History Father Depression IBS (irritable bowel syndrome) Anxiety Diverticulitis Skin cancer Mother History of prediabetes Gestational diabetes Family estrangement Mental health problem Obesity Hypertension Hyperlipidemia Grandfather Family estrangement Grandmother Depression Arthritis Hypertension Grandfather Cancer Pancreatic cancer Grandmother Cancer Breast cancer Colon cancer Sister Anxiety Depression Brother No problems noted. Sister Insulin dependent diabetes mellitus Sister Anxiety Social History marital status: (Legally - had to postpone the Ceremony due to Covid and Morning sickness.) household members: significant other and children (Ty has joint custody of an 18 month-old boy : every other weekend.) lives independently: Yes caregiver/support person: No pets and animals: Yes (Cat : indoor. 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 c/o decreased movement. No leakage of fluid. No bleeding. No contractions Evaluation Evaluation Baseline heart rate: 130 Variability: Moderate (11-25) monitor accelerations: Present Monitor Decelerations: Absent Contraction Frequency (minutes): 0 Category of Tracing: Reactive Status: Category l Diagnosis, Plan/Disposition Final Diagnosis (1) 36 weeks gestation of : Status: Acute (2) Decreased movement: Status: Acute Plan/Disposition Plan: Patient now feeling baby move. Reactive NST. Reassurance. Keep routine OB care. OB Disposition: home
== END 2021-10-15 10:44 | disposition home or self-care (01) ==
LOC: LABOR 10:19 → OB 13:11
PROVIDERS: Referring Provider Family Medicine; Visit Provider Family Medicine
DX: O36.8130 Decreased fetal movements, third trimester, not applicable or unspecified (principal); Z3A.36 36 weeks gestation of pregnancy
CPT/HCPCS: 59025; G0378; G0379

== ENCOUNTER 2021-10-22 14:46 | Outpatient (CLI) | payer OTHER, SELFPAY | END 2021-10-22 15:27 | disposition home or self-care (01) | LOC: LABOR 14:49 → OB 10-24 09:45 | PROVIDERS: Referring Provider Family Medicine; Visit Provider Family Medicine | DX: O36.8130 Decreased fetal movements, third trimester, not applicable or unspecified (principal); Z3A.37 37 weeks gestation of pregnancy; Z86.16 Personal history of COVID-19 | CPT/HCPCS: 59025; G0378; G0379 ==

== ENCOUNTER 2021-10-24 20:18 | Outpatient (CLI) | payer OTHER, SELFPAY | END 2021-10-24 21:09 | disposition home or self-care (01) | LOC: OB 10-28 13:03 | PROVIDERS: PCP Family Medicine; Referring Provider Obstetrics & Gynecology; Visit Provider Obstetrics & Gynecology | DX: Z03.71 Encounter for suspected problem with amniotic cavity and membrane ruled out (principal); O47.1 False labor at or after 37 completed weeks of gestation; Z3A.37 37 weeks gestation of pregnancy | CPT/HCPCS: 59025; 84112; G0378; G0379 ==

== ENCOUNTER 2021-10-30 18:28 | Observation (INO) | payer OTHER, SELFPAY ==
--- NOTE | 2021-10-30 18:54 | P.TNLD_ITS ---
Visit Information Visit Information Date of evaluation: 10/30/21 Primary OB Provider: Maria Del Carmen Ralph On-call OB Provider: Amy Sanchez Reason for Evaluation: Yes rupture of membranes [facility] Medical History Acne (~2009) ADHD (~2007) Allergic rhinitis Anxiety (~2007) Asthma (~2005) Carpal tunnel syndrome (~2019) Depression (~2013) Fracture of ischial tuberosity with delayed healing (~2011) Lymphangioma, any site Migraines (~2011) Post traumatic stress disorder (PTSD) (~2014) Trichomoniasis of vagina Surgical History Anesthesia H/O hand surgery (~1998) History of tonsillectomy and adenoidectomy (~02/24/07) Family History Father Depression IBS (irritable bowel syndrome) Anxiety Diverticulitis Skin cancer Mother History of prediabetes Gestational diabetes Family estrangement Mental health problem Obesity Hypertension Hyperlipidemia Grandfather Family estrangement Grandmother Depression Arthritis Hypertension Grandfather Cancer Pancreatic cancer Grandmother Cancer Breast cancer Colon cancer Sister Anxiety Depression Brother No problems noted. Sister Insulin dependent diabetes mellitus Sister Anxiety Social History marital status: (Legally - had to postpone the Ceremony due to Covid and Morning sickness.) household members: significant other and children (Ty has joint custody of an 18 month-old boy : every other weekend.) lives independently: Yes caregiver/support person: No pets and animals: Yes (Cat : indoor. 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 Some mild cramping. Good movement. No headaches, scotomata, epigastric pain. Evaluation Evaluation Baseline heart rate: 120 Variability: Moderate (11-25) monitor accelerations: Present Monitor Decelerations: Absent Uterine Contraction Intensity: Mild Category of Tracing: Reactive Status: Category l Non-invasive Membranes Rupture Test: negative Diagnosis, Plan/Disposition Final Diagnosis (1) 38 weeks gestation of : Status: Acute (2) False labor: Status: Acute Plan/Disposition Plan: Patient with leakage of fluid but negative testing. OB Disposition: home
== END 2021-10-30 19:17 | disposition home or self-care (01) ==
PROVIDERS: Admitting Provider Specialist; PCP Family Medicine; Referring Provider Specialist; Visit Provider Specialist
DX: Z03.71 Encounter for suspected problem with amniotic cavity and membrane ruled out (principal); O47.1 False labor at or after 37 completed weeks of gestation; Z3A.38 38 weeks gestation of pregnancy
CPT/HCPCS: 59025; 84112; G0378; G0379

== ENCOUNTER 2021-11-04 06:58 | Inpatient (IN) | payer OTHER, SELFPAY ==
--- NOTE | 2021-11-04 07:36 | PM.OBHP.IH.1 ---
OB HPI Date/Time Date of admission: 11/04/21 Date Patient Seen: 11/04/21 Time Patient Seen: 07:25 History of Present Condition Chief complaint: INDUCTION TANGELA Calculator Estimated Delivery Date Method Current WG Current Estimate 11/11/21 Ultrasound #1 39w 0d Other Estimates 11/03/21 LMP (Uncertain) 40w 1d 11/10/21 Ultrasound #2 39w 1d : 1 Para: 0 Narrative: 26-year-old at 39 weeks gestation here for elective induction due to her 's work schedule. has been complicated by COVID infection x2 though courses were quite mild. She took Adderall early in the but weaned off. Denies complaints this morning. She was mamadou overnight but contractions ceased. Denies leaking or bleeding and reports good movement. care: good care (lapse in care from 17-28 weeks due to scheduling issues and mild COVID case), initiated at week # (4), number of visits (14) and pounds weight gain (24) Dating criteria OB: based on 1st trimester US only Ultrasounds: normal 1st trimester US and normal mid trimester US Obstetrical complications: none Medical complications OB: none Indications Indication for induction OB: other (Elective) Preadmission Labs Last OB Lab Results: Blood Type O Positive 03/21/21 22:00 03/21/21 Hematocrit 31.5 % (36-46) L 08/30/21 09:44 08/30/21 Hemoglobin 10.7 g/dL (12.0-16.0) L 08/30/21 09:44 08/30/21 Glucose 1 Hour 88 mg/dL (76-139) 08/30/21 09:44 08/30/21 Group B Streptococcus (PCR) Neg for grp b strep 10/14/21 11:14 10/14/21 External Labs Blood type OB HPI: O (+) positive HCT: 31.5 -: Antibody screen: negative, HBsAG: negative, RPR/VDLR: negative, Chlamydia screen: negative, Gonorrhea screen: negative and GBS status: negative -: Rubella: immune PAP: Normal Genetic Screens: Cell-free DNA: Normal Evaluation Evaluation Baseline heart rate: 120 Variability: Moderate (11-25) monitor accelerations: Present Monitor Decelerations: Absent Contraction Frequency (minutes): 7 Category of Tracing: Reactive Dilation (cm): 2 Effacement (%): 75 Dilation: 1-2 cm Effacement: 60-70% station: -1 Position of cervix: anterior Consistency: soft Vela score: 9 PFSH Medical History Acne (~2009) ADHD (~2007) Allergic rhinitis Anxiety (~2007) Asthma (~2005) Carpal tunnel syndrome (~2019) Depression (~2013) Fracture of ischial tuberosity with delayed healing (~2011) Lymphangioma, any site Migraines (~2011) Post traumatic stress disorder (PTSD) (~2014) Trichomoniasis of vagina Surgical History Anesthesia H/O hand surgery (~1998) History of tonsillectomy and adenoidectomy (~02/24/07) Family History Father Depression IBS (irritable bowel syndrome) Anxiety Diverticulitis Skin cancer Mother History of prediabetes Gestational diabetes Family estrangement Mental health problem Obesity Hypertension Hyperlipidemia Grandfather Family estrangement Grandmother Depression Arthritis Hypertension Grandfather Cancer Pancreatic cancer Grandmother Cancer Breast cancer Colon cancer Sister Anxiety Depression Brother No problems noted. Sister Insulin dependent diabetes mellitus Sister Anxiety Social History marital status: (Legally - had to postpone the Ceremony due to Covid and Morning sickness.) household members: significant other and children (Ty has joint custody of an 18 month-old boy : every other weekend.) lives independently: Yes caregiver/support person: No pets and animals: Yes (Cat : indoor. 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 occupational exposures/hazards: Yes special amalia needs: No Smoking Status: Never smoker Smokeless tobacco user: dissolvable tobacco (Vapes occasionally.) quit status: quit date established (with diagnosis.) second hand exposure: No alcohol intake: former (pre- : Rare use ) substance use type: does not use and marijuana (Some use of edibles to manage nausea.) Meds Home Medications and Allergies Home Medications Medication Instructions Recorded Confirmed Type albuterol sulfate 90 mcg/actuation 2 puff INHALATION Q4-6H PRN #8.5 08/01/18 10/24/21 Rx aerosol inhaler gram ondansetron 4 mg disintegrating 4 mg PO Q6-8H PRN #30 tab 09/22/20 10/24/21 Rx tablet prenat.vits,rin,ztx-fjou-dzrnq 1 tab PO DAILY 06/02/21 10/24/21 History sertraline 50 mg tablet (Zoloft) 200 mg PO DAILY #90 tab 09/16/21 10/24/21 Rx Allergies Allergy/AdvReac Type Severity Reaction Status Date / Time tramadol Allergy Severe Vomiting, Verified 06/02/21 15:17 Diarrhea amoxicillin Allergy Hives Verified 06/02/21 15:17 azithromycin Allergy Hives Verified 06/02/21 15:17 dairy AdvReac Intermediate GI Uncoded 06/02/21 15:17 symptoms : bloating, migraines. Better with . Review of Systems Review of Systems ROS: Yes All systems reviewed with the patient and are negative except as otherwise documented OB Exam HENMT Head: normal to inspection Eyes General: appearance normal, both eyes and all related structures Resp Effort & Inspection: normal respiratory effort Auscultation: clear to auscultation bilaterally Cardio Rate: regular rate Rhythm: regular rhythm Heart Sounds: S1 normal Extremities Lower extremity: Yes normal to inspection; No edema Presentation: vertex Estimated Weight (lbs): 7 Assessment and Plan Assessment and Plan Assessment and Plan narrative: 26-year-old at 30 weeks gestation here for elective induction due to her 's work schedule. GBS negative, COVID negative. Vela score of 9. Plan Pitocin per protocol Epidural upon request Anticipate
[2021-11-04 07:45] LABS: COVID19 -Nasal RAPID Negative (Negative)
[2021-11-04 08:06] LABS: Add Manual Diff / Slide Review NO; Basophils Absolute Auto 100 /uL (0-100); Basophils Percent Auto 0.6 % (0-2); Eosinophils Absolute Auto 200 /uL (0-450); Eosinophils Percent Auto 2.2 % (2-4); Hematocrit 34.3 % (36-46); Hemoglobin 11.6 g/dL (12.0-16.0); Lymphocytes Absolute Auto 1400 /uL (1100-4500); Mean Corpuscular HGB Conc 33.8 % (30-36); Mean Corpuscular Volume 91.7 fL (80-100); Monocytes Absolute Auto 800 /uL (0-900); Monocytes Percent Auto 9.5 % (3-14); Neutrophils Absolute Auto 6400 /uL (1500-7000); Neutrophils Percent Auto 71.7 % (50-75); Platelet Count 144 X10^3/uL (150-400); Red Blood Cell Count 3.74 X10^6/uL (4.0-5.2); Red Cell Distribution Width 13.3 % (11.6-14.8); White Blood Cell Count 8.9 X10^3/uL (4.5-11.0)
[2021-11-04] MEDS: LACTATED RINGERS 1,000 ML 100 ML IV (08:14)
[2021-11-04] MEDS: OXYTOCIN PREMIX 30 UNIT/500 ML PLAST..BAG IV (08:14)
[2021-11-04 10:51] VITALS: BP 124/74
--- NOTE | 2021-11-04 12:08 | PM.OBPNLAB ---
Date/Time Date Patient Seen: 11/04/21 Time Patient Seen: 12:00 Pain Control Pain control: tolerating well Comments: Doing well, feeling some but not all contractions. Pelvic Exam Dilation (cm): 3 Effacement (%): 80 station: -1 Amniotic membrane status: Ruptured (AROM clear fluid) Contractions Pitocin rate (mU/min): 12 Contraction frequency (min): 2 Status status: Category l Heart Rate Baseline: 120 Monitor Accelerations: Present Monitor Decelerations: Absent Monitor Variability: Moderate Assessment and Plan Assessment: induction ongoing Comments: AROm with clear fluid. Continue pitocin. Epidural upon request.
[2021-11-04] MEDS: FENT 2MCG/ML BUPIV 0.125% EPI 200 MCG/100 ML PLAST..BAG 10 MCG EPIDURAL (13:00)
--- NOTE | 2021-11-04 16:46 | PM.OBPNLAB ---
Date/Time Date Patient Seen: 11/04/21 Time Patient Seen: 16:46 Pain Control Pain control: epidural Pelvic Exam Dilation (cm): 5 Effacement (%): 90 station: -1 Amniotic membrane status: Ruptured (AROM clear fluid) Contractions Pitocin rate (mU/min): 18 Contraction frequency (min): 2 Status status: Category ll Heart Rate Baseline: 120 Monitor Accelerations: Present Monitor Decelerations: Variable (Not recurrent) Assessment and Plan Assessment: induction ongoing Plan: continuous present management Comments: Now comfortable with epidural. Continue to titrate pitocin per protocol.
[2021-11-04] MEDS: BUPIVACAINE EPIDURAL (17:32)
[2021-11-04] MEDS: FENTANYL 2 MCG EPIDURAL (17:32)
[2021-11-04] MEDS: LACTATED RINGERS 1,000 ML 500 ML IV (20:07)
--- NOTE | 2021-11-04 23:06 | PM.OBPRVD ---
Labor & Delivery Delivery date: 11/04/21 Induction method: per pitocin protocol Delivery augmentation: rupture of membranes Delivery monitor: external FHT Route of delivery: L&D Laceration Description: Labial (bilateral ) Delivery repair: chromic Estimated blood loss (mL): 700 Anesthesia Type: Epidural Narrative: BRIEF HISTORY: Patient is a 26-year-old at 39 weeks who gave on 11/04/21 at 10:24 PM. TANGELA: 11/11/21 Hospital problems: 39 weeks of STAGE I: Labor Patient presented for elective induction. She was started on Pitocin per protocol. Artificial rupture membranes occurred at 11:55 a.m. with clear fluid. Active labor began at approximately 12:30 p.m. and she requested an epidural. EFM category 1 and 2 throughout stage I due to periods of variables which resolved with position change, IV fluids and oxygen. STAGE II: Delivery Patient was complete at 21:36 and began pushing. She delivered a vigorous female infant at 10:24 p.m.. Infant was vertex and DAVIS. was immediately placed on mother's abdomen and noted to have the cord wrapped around the left foot twice. This was reduced. Apgars were 8 and 9. No resuscitation required beyond drying and stimulating. weight 3166 g. STAGE III: Placenta/Cord Placenta delivered at 10:32 p.m.. There were several large gushes of blood after delivery of the placenta which improved with uterine massage and Pitocin bolus. Bleeding was monitored closely. She had a couple more smaller gushes during the repair. Bilateral labial lacerations were repaired with 3-0 chromic in the usual fashion with good hemostasis. Uterine fundus was firm below umbilicus after repair and hemostasis assured. EBL: 700 mL. Needle and sponge counts were correct. The vagina was inspected and no items were left in situ. Patient was doing well with Radha, her and at bedside. [place] Baby 1: Infant gender: Female Presentation: vertex Position: Right Occiput Anterior Placenta delivery description: Spontaneous Cord Vessel Description: 3 Vessels and Around Extremity x2 score (1 min): 8 score (5 min): 9 weight: 6 lb 15.677 oz Plan for aftercare: Routine care
[2021-11-05 01:34] VITALS: TEMP 36.3
[2021-11-05] MEDS: IBUPROFEN 600 MG TABLET PO ×4 (01:34→23:54)
[2021-11-05] MEDS: DERMOPLAST SPRAY 20% 60 ML 1 SPRAY TOP (01:35)
[2021-11-05] MEDS: ACETAMINOPHEN 325 MG TABLET 650 MG PO ×3 (07:03→23:54)
[2021-11-05 07:22] LABS: Hematocrit 27.4 % (36-46); Hemoglobin 9.2 g/dL (12.0-16.0)
[2021-11-05] MEDS: DOCUSATE 100 MG CAPSULE PO (08:07)
[2021-11-05] MEDS: FERROUS SULFATE 325 MG TABLET PO (08:07)
[2021-11-05] MEDS: PRENATAL VIT,CALC/IRON/FOLIC 1 TABLET 1 TAB PO (08:07)
[2021-11-05] MEDS: SERTRALINE 50 MG TABLET 200 MG PO (08:07)
--- NOTE | 2021-11-05 09:36 | PM.OBPN.1 ---
Subjective - OB Subjective Patient comments: no complaints, pain well controlled and tolerating diet baby status: doing well and nursing well feeding status: exclusively breast feeding Narrative: Patient denies complaints this morning however infant had 2 episodes of cyanosis overnight associated with feeding. is doing well this morning without apparent distress and is going well. There was some question as to whether she was refluxing or aspirating after breast-feeds but episodes do not happen with every feed. Patient is ambulating, voiding and tolerating a diet. Vaginal bleeding is moderate. She is without dizziness or lightheadedness. Pain controlled with ibuprofen only. Date Patient Seen: 11/05/21 Time Patient Seen: 08:15 Exam Vital Signs (past 8 hours): Temperature 36.1? blood pressure 113/63 heart rate 90 General: Awake and alert, no acute distress. HEENT: NCAT, EOMI, moist oral mucosa CV: Regular rate and rhythm, no murmurs, rubs or gallops Lungs: CTAB, no wheezes, rales, or rhonchi Abdomen: Soft, nontender; bowel tones active; uterus firm at umbilicus Extremities: Warm, no edema Objective Labs Result Diagrams: 11/05/21 06:42 Labs: Laboratory Results - last 24 hr 11/05/21 06:42 Hgb 9.2 L Hct 27.4 L Assessment & Plan Assessment and Plan (1) Spontaneous vaginal delivery: Status: Acute (2) Acute blood loss anemia: Status: Acute (3) hemorrhage: Status: Acute Plan day: 1 plan OB: routine care Comments: 26-year-old day 1 after spontaneous vaginal delivery complicated by mild hemorrhage. Vaginal bleeding as expected this morning but not excessive. She had some lightheadedness/dizziness during the night after delivery but denies complaints this morning. She has been up out of bed without difficulty. Will start iron for acute blood loss anemia and monitor bleeding closely. Continue routine care. Anticipate discharge home tomorrow. Time Spent With Patient Time: Total time spent is greater than 50% in coordination of care (as documented) at patient's floor/unit and/or counseling patient: Time with patient: 15-24 minutes
[2021-11-06] MEDS: ACETAMINOPHEN 325 MG TABLET 650 MG PO (05:56)
[2021-11-06] MEDS: IBUPROFEN 600 MG TABLET PO (05:56)
--- NOTE | 2021-11-06 07:45 | P.DS_ITS ---
Discharge Providers Provider Date of admission: 11/04/21 06:58 Discharge Date: 11/06/21 Primary care physician: Maria Del Carmen Ralph DO Consults: 11/05/21 23:03 Consult to Edger Machine Helper Routine Comment: 11/06/21 00:07 Consult to Edger Machine Helper Routine Comment: Discharge provider: Maria Del Carmen Ralph DO Summary Hospital Course Date Patient Seen: 11/06/21 Time Patient Seen: 07:30 Diagnoses: 39 weeks of Spontaneous vaginal delivery hemorrhage Acute blood loss anemia Hospital Course: 26-year-old G1 now P1 after spontaneous vaginal delivery at 39 weeks 11/04/21. Patient presented for elective induction due to her 's work schedule. She progressed with Pitocin and went on to receive an epidural. She delivered a vigorous female . Bilateral labial lacerations were repaired in the usual fashion. She did have slightly more bleeding than expected which resolved with fundal massage and Pitocin bolus. EBL 700. course was uncomplicated. She was ambulating, voiding and passing flatus. Vaginal decreasing. She was started on iron in addition to ibuprofen and docusate. Br east-feeding was going well the time of discharge. Advised patient to call for fevers, severe pain or bleeding through more than a pad an hour. Follow-up in clinic in 6 weeks. Peripartum Data Infant Delivery Method: Natural Vaginal Laceration Description: Labial (Bilateral) complications: none [place] 1: Gender: Female Disposition of : home Discharge Diagnosis (1) Spontaneous vaginal delivery: Status: Acute (2) Acute blood loss anemia: Status: Acute (3) hemorrhage: Status: Acute Status at Discharge Cognitive/behavioral status at discharge: at baseline, oriented Functional status at discharge: independent ambulation Overall status at discharge: patient is progressing back to baseline Time Spent with Patient Time attestation: Total time spent providing and/or coordinating discharge services: Time spent: Less than 30 minutes Objective Labs Result Diagrams: 11/05/21 06:42 Exam Vital Signs (past 8 hours): Temperature 98.0 blood pressure 128/66 heart rate 80 respirations 16 Narrative Exam Narrative: General: Awake and alert, no acute distress. HEENT: NCAT, EOMI, moist oral mucosa CV: Regular rate and rhythm, no murmurs, rubs or gallops Lungs: CTAB, no wheezes, rales, or rhonchi Abdomen: Soft, nontender; bowel tones active; uterus firm 1 cm below umbilicus Extremities: Warm, no edema Discharge Plan Discharge Plan Patient Disposition: Home Discharge orders & Medications Prescriptions: New docusate sodium 100 mg Capsule 100 mg PO DAILY Qty: 30 0RF ferrous sulfate 325 mg (65 mg iron) Tablet 325 mg PO DAILY Qty: 30 0RF ibuprofen 600 mg Tablet 600 mg PO Q6HR PRN (Reason: Pain, Mild (1-3)) Qty: 30 0RF Continued albuterol sulfate 90 mcg/actuation HFA aerosol inhaler 2 puff INHALATION Q4-6H PRN (Reason: shortness of breath) Qty: 8.5 1RF sertraline [Zoloft] 50 mg tablet 200 mg PO DAILY Qty: 90 3RF prenat.vits,rin,kpe-saax-fyegg Tablet 1 tab PO DAILY 0RF Discontinued ondansetron 4 mg tablet,disintegrating 4 mg PO Q6-8H PRN (Reason: nausea and vomiting) Qty: 30 0RF Follow up/Referrals: Maria Del Carmen Ralph DO [Primary Care Provider] - 6 Weeks (Please follow up with Dr. Ralph in 6 weeks!) Diet/Activity/Treatments Diet: Diet as Tolerated Skin/Wound/Dressing Care Report to your healthcare provider any signs of infection, such as:: chills, fever, night sweats, increased pain, unusual drainage and unusual redness Visit Report/Discharge Packet Visit Report Forms: Patient Portal/API, Stroke Signs & Symptoms Discharge Data Primary Care Provider: Maria Del Carmen Ralph
[2021-11-06] MEDS: SERTRALINE 50 MG TABLET 200 MG PO (08:49)
[2021-11-06] MEDS: FERROUS SULFATE 325 MG TABLET PO (08:49)
[2021-11-06] MEDS: DOCUSATE 100 MG CAPSULE PO (08:49)
[2021-11-06] MEDS: PRENATAL VIT,CALC/IRON/FOLIC 1 TABLET 1 TAB PO (08:50)
[2021-11-06 09:45] VITALS: BP 119/64; PULSE 79; RESP 18; TEMP 36.3
== END 2021-11-06 09:35 | disposition home or self-care (01) | DRG 806 ==
PROVIDERS: Admitting Provider Family Medicine; PCP Family Medicine; Referring Provider Family Medicine; Visit Provider Family Medicine
DX: O70.0 First degree perineal laceration during delivery (principal); D62 Acute posthemorrhagic anemia; Z37.0 Single live birth; O90.81 Anemia of the puerperium; Z3A.39 39 weeks gestation of pregnancy; O76 Abnormality in fetal heart rate and rhythm complicating labor and delivery; Z86.16 Personal history of COVID-19
CPT/HCPCS: 01967; 36415; 59050; 59400; 85014; 85018; 85025; 86850; 86900; 86901; 87635; C9803; G0379; J2590

== ENCOUNTER → 2022-03-16 17:29 | Outpatient (CLI) | payer OTHER, SELFPAY | PROVIDERS: PCP Family Medicine; Visit Provider Nurse Practitioner Family | DX: J02.9 Acute pharyngitis, unspecified (principal) | CPT/HCPCS: 87070 ==

== ENCOUNTER → 2022-10-27 15:05 | Outpatient (CLI) | payer OTHER, SELFPAY ==
[2022-10-27 15:52] LABS: Add Manual Diff / Slide Review NO; Basophils Absolute Auto 0 /uL (0-100); Basophils Percent Auto 0.4 % (0-2); Eosinophils Absolute Auto 400 /uL (0-450); Eosinophils Percent Auto 4.4 % (2-4); Hematocrit 34.5 % (36-46); Hemoglobin 11.6 g/dL (12.0-16.0); Lymphocytes Absolute Auto 1400 /uL (1100-4500); Lymphocytes Percent Auto 16.1 % (25-40); Mean Corpuscular HGB Conc 33.8 % (30-36); Mean Corpuscular Hemoglobin 31.4 PG (26-34); Mean Corpuscular Volume 93.2 fL (80-100); Monocytes Absolute Auto 600 /uL (0-900); Monocytes Percent Auto 6.6 % (3-14); Neutrophils Absolute Auto 6200 /uL (1500-7000); Neutrophils Percent Auto 72.5 % (50-75); Platelet Count 178 X10^3/uL (150-400); Red Cell Distribution Width 12.6 % (11.6-14.8); White Blood Cell Count 8.5 X10^3/uL (4.5-11.0)
[2022-10-29 15:58] LABS: Hepatitis B Surface Antigen NEGATIVE s/c (NEGATIVE); Rubella Antibody IgG 27.6 IU/mL (>15)
[2022-10-29 16:34] LABS: HIV 1 & 2 Ab/Ag 4th Gen Combo NEGATIVE (NEGATIVE); Hep C Virus Ab w/Reflex Quant NEGATIVE s/c (NEGATIVE)
[2022-10-30 07:40] LABS: RPR Screen Non Reactive (Non Reactive)
[2022-10-30 08:31] LABS: Varicella IgG Antibody 361 index (Immune >165)
[2022-10-31 21:43] LABS: AFP, Serum 54.7 ng/mL (.); Calc Gestational Age Ultrasound (.); Estriol, Free 2.28 ng/mL (.); Inhibin A, Dimeric 130.44 pg/mL (.); Inhibin A, MoM 0.85 (.); Maternal Ethnicity Caucasian (.); Maternal Weight 159 lbs (.); Number of Fetuses No (.); OSBR Risk 1 IN 6916 (.); Results Report (.); Test Results *Screen Negative* (.); hCG, MoM 0.62 (.); hCG, Serum 17529 mIU/mL (.)
== END ==
PROVIDERS: Family Medicine; PCP Family Medicine; Referring Provider Family Medicine; Visit Provider Family Medicine
DX: Z34.81 Encounter for supervision of other normal pregnancy, first trimester (principal)
CPT/HCPCS: 36415; 80055; 82105; 82677; 84702; 86336; 86787; 86803; 86850; 86900; 86901; 87389

== ENCOUNTER → 2022-11-10 09:52 | Outpatient (CLI) | payer OTHER, SELFPAY ==
--- NOTE | 2022-11-10 09:53 | DI.US.S_ITS ---
PROCEDURE: US OB >= 14 WEEKS FETUS INDICATIONS: ANATOMY OUTSIDE/PRIOR DATING DATA: Last menstrual period (LMP): Undo of. LMP-based estimated date of delivery (TANGELA): Unknown. First dating scan (date and location): 08/17/2022. Estimated date of delivery (TANGELA) from first dating scan: 04/06/2023. The calculations are made using the ultrasound TANGELA of 04/06/2023. TECHNIQUE: Real-time scanning was performed of the fetus, with image documentation and biometric measurements. Endovaginal scanning: Not performed COMPARISON: [facility], OB >= 14 WEEKS FETUS, 06/24/2021, 12:24. FINDINGS: General: A single living intrauterine gestation is present. Presentation: Vertex Placenta: Placental position is posterior , without previa. Amniotic fluid index: 12.5 cm, normal range is 5-24 cm. Single deepest vertical pocket is 3.7 cm. heart rate: 143 beats per minute. Maternal cervical canal: 3.1 cm long. Normal lower limit is 2.5 cm. biometrics: Biparietal diameter: 4.9 cm, 21 weeks 0 days Head circumference: 18.3 cm, 20 weeks 5 days Abdominal circumference: 15.2 cm, 20 weeks 3 days Femur length: 3.1 cm, 19 weeks 4 days Clinically estimated gestational age: 20 weeks 3 days Composite gestational age from present scan: 20 weeks 3 days Estimated weight and percentile: 333 g, 29th percentile Anatomic survey: Neuro: Ventricles are non-dilated at less than 10 mm. Cisterna magna is normal at 3-11 mm. Cerebellum is normal in size and morphology. Nuchal skin fold: Normal at less than 6 mm between 14-21 weeks gestational age. Face: Nose and lips, facial profile are normal. Spine: No evidence for spina bifida. Heart: 4-chambered heart is present, with normal ventricular outflow tracts. Diaphragm: Diaphragm is intact. Stomach: Left-sided stomach is present. Kidneys: No hydronephrosis. Normal is less than 5 mm in 2nd trimester, less than 7 mm in 3rd trimester. Cord: 3-vessel cord has orthotopic insertion. Bladder: Normal in size. Extremities: All 4 extremities identified. IMPRESSION: 1. Living 2nd trimester intrauterine with no sonographic evidence of complications. Current ultrasound age is the same as clinical age based on initial 1st trimester ultrasound. 2. Normal anatomy study. We strive to produce accurate, complete, and clear reports of imaging services. To assist us in improving patient care, this report was composed using standard report templates and voice recognition software. Therefore, it may contain abnormal punctuation, insertions and/or omissions. Occasional wrong-word or sound-alike substitutions may occur. Though we review the report and make efforts to correct it, we do recommend that the report be read carefully in proper context to recognize any text inaccuracies. Dictated by: Larry Moran M.D. on 11/10/2022 at 11:54 Approved by: Larry Moran M.D. on 11/10/2022 at 12:01
[2022-11-10 12:42] LABS: Appearance Urine UA CLEAR; Bilirubin Urine UA NEGATIVE (NEGATIVE); Color Urine UA YELLOW; Glucose Urine UA NEGATIVE (Negative); Ketones Urine UA NEGATIVE (NEGATIVE); Leukocyte Esterase Urine UA NEGATIVE (NEGATIVE); Nitrite Urine UA NEGATIVE (Negative); Occult Blood Urine UA NEGATIVE (Negative); Protein Urine UA NEGATIVE (Negative); Specific Gravity Urine UA 1.015 (1.000-1.035); Urobilinogen Urine UA 0.2 E.U./dL (0.2)
[2022-11-10 12:51] LABS: pH Urine UA 7.5 (4.5-8.0)
== END ==
PROVIDERS: PCP Family Medicine; Referring Provider Family Medicine; Visit Provider Family Medicine
DX: Z34.92 Encounter for supervision of normal pregnancy, unspecified, second trimester (principal); Z3A.20 20 weeks gestation of pregnancy
CPT/HCPCS: 76811; 81003; 87086

== ENCOUNTER 2023-02-10 11:01 | Emergency (ER) | payer OTHER, SELFPAY ==
[2023-02-10] VITALS (10 sets, daily range): BP systolic 103–128; BP diastolic 56–68; PULSE 67–86; RESP 16; TEMP 36.6; O2SAT 97–99; BMI 29.3
--- NOTE | 2023-02-10 11:13 | PC.NURSE ---
Patient generally has had low blood pressures throughout 98/50, trending up over time 128/64.
--- NOTE | 2023-02-10 11:15 | DI.RAD.S_ITS ---
PROCEDURE: XR CHEST 1V INDICATIONS: chest pain TECHNIQUE: One view of the chest was acquired. COMPARISON: [facility], CR, XR CHEST 2V, 07/22/2018, 15:48. FINDINGS: Surgical changes and devices: None. Lungs and pleura: Lungs are clear. No pleural effusions or pneumothorax. Mediastinum: Mediastinal contours appear normal. Heart size is normal. Bones and chest wall: No suspicious bony lesions. Overlying soft tissues appear unremarkable. IMPRESSION: No acute cardiopulmonary process. No radiopaque foreign body projecting over the esophagus. Dictated by: Gurwinder Blanca M.D. on 02/10/2023 at 11:44 Approved by: Gurwinder Blanca M.D. on 02/10/2023 at 11:45
--- NOTE | 2023-02-10 11:34 | PC.NURSE ---
Pt endorses of a minor frontal JAMES, she also states she has a feeling in her mid epigastric chest of difficulty swallowing. She states her symptoms worsen in the evening. Has taken tums at home with no relief of symptoms
[2023-02-10 11:35] LABS: Add Manual Diff / Slide Review NO; Basophils Absolute Auto 0 /uL (0-100); Basophils Percent Auto 0.4 % (0-2); Eosinophils Absolute Auto 100 /uL (0-450); Eosinophils Percent Auto 1.7 % (2-4); Hemoglobin 10.7 g/dL (12.0-16.0); Lymphocytes Absolute Auto 1100 /uL (1100-4500); Mean Corpuscular HGB Conc 34.4 % (30-36); Mean Corpuscular Hemoglobin 30.7 PG (26-34); Mean Corpuscular Volume 89.1 fL (80-100); Monocytes Absolute Auto 500 /uL (0-900); Monocytes Percent Auto 6.6 % (3-14); Neutrophils Absolute Auto 5300 /uL (1500-7000); Neutrophils Percent Auto 75.3 % (50-75); Platelet Count 137 X10^3/uL (150-400); Red Blood Cell Count 3.48 X10^6/uL (4.0-5.2); Red Cell Distribution Width 12.5 % (11.6-14.8); White Blood Cell Count 7.1 X10^3/uL (4.5-11.0)
[2023-02-10 11:37] LABS: Prothrombin Time 11.3 SECONDS (10.1-12.7)
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
[2023-02-10 11:40] LABS: PTT Partial Thromboplastin Tim 26 SECONDS (26-36)
[2023-02-10 11:43] LABS: Alanine Aminotransferase 20 IU/L (<35); Albumin 3.2 g/dL (3.5-5.0); Albumin Globulin Ratio 1.1 (1.0-2.8); Alkaline Phosphatase 188 U/L (38-126); Aspartate Aminotransferase 21 IU/L (14-36); BUN Creatinine Ratio 10.4 (6-22); Bilirubin Total 0.1 mg/dL (0.2-1.3); Blood Urea Nitrogen 5 mg/dL (7-17); Calcium 8.3 mg/dL (8.4-10.2); Carbon Dioxide 22 mmol/L (22-32); Chloride 105 mmol/L (98-107); Creatine Kinase 23 U/L (30-135); Estimated Glomerular Filt Rate > 60 mL/min (>60); Globulin 2.9 g/dL (1.7-4.1); Glucose 127 mg/dL (70-100); HEMOLYSIS < 15 (0-50); Lipase 48 U/L (23-300); Magnesium 1.8 mg/dL (1.6-2.3); Potassium 3.7 mmol/L (3.4-5.1); Sodium 134 mmol/L (137-145); Total Protein 6.1 g/dL (6.3-8.2)
[2023-02-10 11:52] LABS: NT-proBNP (BNP-Adult 18+) 88 pg/mL (<125)
[2023-02-10 11:55] LABS: Troponin I < 0.012 ng/mL (0.01-0.034)
[2023-02-10 11:55] LABS: COVID19 -Nasal RAPID Negative (Negative)
--- NOTE | 2023-02-10 11:56 | DI.US.S_ITS ---
PROCEDURE: US PERIPH VENOUS LOW EXTREM BI INDICATIONS: EDEMA TECHNIQUE: Real-time imaging, as well as color and pulse Doppler interrogation, were performed of the deep veins of both legs from the inguinal ligament to the popliteal fossa. COMPARISON: None. FINDINGS: Right: The common femoral, femoral and popliteal veins are normally compressible, and free of intraluminal thrombus. Color and pulse Doppler demonstrate normal phasic intravascular flow. There is normal augmentation response to distal compression maneuver. Left: The common femoral, femoral and popliteal veins are normally compressible, and free of intraluminal thrombus. Color and pulse Doppler demonstrate normal phasic intravascular flow. There is normal augmentation response to distal compression maneuver. IMPRESSION: No deep venous thrombosis. Dictated by: Gurwinder Blanca M.D. on 02/10/2023 at 11:45 Approved by: Gurwinder Blanca M.D. on 02/10/2023 at 11:45
--- NOTE | 2023-02-10 11:57 | PC.NURSE ---
L&D nurse at bed side assessing movement.
[2023-02-10] MEDS: SODIUM CHLORIDE 0.9% 1,000 ML 1000 ML IV (12:00)
[2023-02-10 13:17] LABS: Adenovirus Not Detected (Not Detect); B. parapertussis Not Detected (Not Detecte); Bordetella pertussis Not Detected (Not Detecte); Chlamydophila pneumoniae Not Detected (Not Detect); Coronavirus 229E Not Detected (Not Detect); Coronavirus HKU1 Not Detected (Not Detect); Coronavirus NL 63 Not Detected (Not Detect); Coronavirus OC43 Not Detected (Not Detect); Human Metapneumovirus Not Detected (Not Detect); Human Rhinovirus/Enterovirus Not Detected (Not Detect); Influenza A Not Detected (Not Detect); Influenza B Not Detected (Not Detect); Mycoplasma pneumoniae Not Detected (Not Detect); Parainfluenza Virus 1 Not Detected (Not Detect); Parainfluenza Virus 2 Not Detected (Not Detect); Parainfluenza Virus 3 Not Detected (Not Detect); Parainfluenza Virus 4 Not Detected (Not Detect); Respiratory Syncytial Virus Not Detected (Not Detect); SARS- CoV-2 Not Detected (Not Detecte)
[2023-02-10 14:00] LABS: RBC Urine 0-1/HPF (0-5/HPF); Squamous Epithelial Cell Urine 1-5 /HPF (0-5/HPF); WBC Urine 1-5/HPF (0-5/HPF)
[2023-02-10 14:01] LABS: Bacteria Urine Moderate (10-30)
== END 2023-02-10 14:28 | disposition home or self-care (01) ==
PROVIDERS: Emergency Provider Emergency Medicine; PCP Family Medicine
DX: O26.893 Other specified pregnancy related conditions, third trimester (principal); R42 Dizziness and giddiness; R79.89 Other specified abnormal findings of blood chemistry; Z3A.33 33 weeks gestation of pregnancy; Z20.822 Contact with and (suspected) exposure to COVID-19
CPT/HCPCS: 36415; 71045; 80053; 81003; 81015; 82550; 83690; 83735; 83880; 84484; 85025; 85610; 85730; 87086; 87633; 87635; 93005; 93010; 93970; 96360; 99284; C9803

== ENCOUNTER → 2023-02-17 14:49 | Outpatient (CLI) | payer OTHER, SELFPAY ==
[2023-02-17 17:05] LABS: GTT (PREG) 1 Hour PP 50gm Dose 125 mg/dL (76-139)
== END ==
PROVIDERS: PCP Family Medicine; Referring Provider Family Medicine; Visit Provider Family Medicine
DX: Z3A.33 33 weeks gestation of pregnancy (principal)
CPT/HCPCS: 36415; 82950

== ENCOUNTER → 2023-03-04 10:08 | Outpatient (CLI) | payer OTHER, SELFPAY ==
[2023-03-05 08:12] LABS: Strep Grp B PCR NEG for Grp B Strep
== END ==
PROVIDERS: PCP Family Medicine; Visit Provider Family Medicine
DX: Z34.93 Encounter for supervision of normal pregnancy, unspecified, third trimester (principal); Z3A.36 36 weeks gestation of pregnancy
CPT/HCPCS: 87653

== ENCOUNTER 2023-03-17 22:19 | Observation (INO) | payer OTHER, SELFPAY | END 2023-03-18 04:30 | disposition home or self-care (01) | PROVIDERS: Admitting Provider Advanced Practice Midwife; PCP Family Medicine; Referring Provider Advanced Practice Midwife; Visit Provider Advanced Practice Midwife | DX: O47.1 False labor at or after 37 completed weeks of gestation (principal); Z3A.38 38 weeks gestation of pregnancy | CPT/HCPCS: 59025; 59050; G0378; G0379 ==

== ENCOUNTER 2023-03-22 14:17 | Outpatient (CLI) | payer OTHER, SELFPAY | END 2023-03-22 15:20 | disposition home or self-care (01) | LOC: LABOR 14:39 → OB 03-24 08:48 | PROVIDERS: PCP Family Medicine; Referring Provider Family Medicine; Visit Provider Family Medicine | DX: Z03.71 Encounter for suspected problem with amniotic cavity and membrane ruled out (principal); O47.1 False labor at or after 37 completed weeks of gestation; Z3A.39 39 weeks gestation of pregnancy | CPT/HCPCS: 59025; 84112; G0378; G0379 ==

== ENCOUNTER 2023-03-24 10:18 | Inpatient (IN) | payer OTHER, SELFPAY ==
[2023-03-24] MEDS: OXYTOCIN PREMIX 30 UNIT/500 ML PLAST..BAG IV (10:59)
[2023-03-24] MEDS: LACTATED RINGERS 1,000 ML 100 ML IV ×4 (10:59→18:27)
[2023-03-24 11:01] LABS: Add Manual Diff / Slide Review NO; Basophils Absolute Auto 0 /uL (0-100); Basophils Percent Auto 0.4 % (0-2); Eosinophils Absolute Auto 100 /uL (0-450); Hematocrit 32.6 % (36-46); Hemoglobin 10.9 g/dL (12.0-16.0); Lymphocytes Absolute Auto 1300 /uL (1100-4500); Lymphocytes Percent Auto 15.7 % (25-40); Mean Corpuscular HGB Conc 33.4 % (30-36); Mean Corpuscular Hemoglobin 29.3 PG (26-34); Mean Corpuscular Volume 87.6 fL (80-100); Monocytes Absolute Auto 700 /uL (0-900); Monocytes Percent Auto 7.7 % (3-14); Neutrophils Absolute Auto 6300 /uL (1500-7000); Neutrophils Percent Auto 75.2 % (50-75); Platelet Count 166 X10^3/uL (150-400); Red Blood Cell Count 3.72 X10^6/uL (4.0-5.2); Red Cell Distribution Width 13.5 % (11.6-14.8); White Blood Cell Count 8.4 X10^3/uL (4.5-11.0)
--- NOTE | 2023-03-24 11:17 | P.HPOB_ITS ---
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 She is feeling her baby move regularly. No vaginal bleeding, LOF, contractions. The pts was complicated by depression, stable on Sertraline. The pt also has ADHD. She was initially on Adderall at the start of her , but weaned off by the end of the 1st trimester. care: good care, initiated at week # (8) and pounds weight gain (17) Dating criteria OB: based on 1st trimester US only Ultrasounds: normal 1st trimester US and normal mid trimester US Obstetrical complications: none Medical complications OB: psychiatric (Depression, ADHD) Preadmission Labs Last OB Lab Results: Blood Type O Positive 03/24/23 10:40 Antibody Screen Negative 03/24/23 10:40 Hematocrit 32.6 % (36-46) L 03/24/23 10:40 Hemoglobin 10.9 g/dL (12.0-16.0) L 03/24/23 10:40 Hepatitis B Surface Antigen Negative s/c (NEGATIVE) 10/27/22 15 :20 Hepatitis C Antibody Negative s/c (NEGATIVE) 10/27/22 15:20 Rubella Antibody 27.6 IU/mL (>15) 10/27/22 15:20 Varicella-Zoster IgG Antibody 361 index (Immune >165) 10/27/22 15:20 Glucose 1 Hour 125 mg/dL (76-139) 02/17/23 14:52 Group B Streptococcus (PCR) Neg for grp b strep 03/04/23 10:08 -: Urine: negative Genetic Screens: Quad screen: Normal External Labs -: Urine: negative Prior (ies) Past Pregnancies Del. Date GA/Weeks Labor Lgth Wt Sex Route Outcome Anesthesia Place Delv Breastfeed Preg Comp Name 11/04/21 39 10 6 lb 15.677 oz Female vaginal live - ful l term [facility] 5 months hemorrhage Radha Evaluation Evaluation Baseline heart rate: 130 Variability: Moderate (11-25) monitor accelerations: Present Monitor Decelerations: Absent Contraction Frequency (minutes): 7 Uterine Contraction Intensity: Mild Status: Category l Dilation (cm): 3.5 Effacement (%): 80 Dilation: 3-4 cm Effacement: >/=80% station: -1 Position of cervix: mid Consistency: soft Vela score: 10 PFSH Medical History Acne (~2009) ADHD (~2007) Allergic rhinitis Anxiety (~2007) Asthma (~2005) Carbon monoxide poisoning Carpal tunnel syndrome (~2019) Depression (~2013) Fracture of ischial tuberosity with delayed healing (~2011) Lymphangioma, any site Migraines (~2011) Post traumatic stress disorder (PTSD) (~2014) hemorrhage Spontaneous vaginal delivery Trichomoniasis of vagina Surgical History Anesthesia H/O hand surgery (~1998) History of tonsillectomy and adenoidectomy (~02/24/07) Family History Father Depression IBS (irritable bowel syndrome) Anxiety Diverticulitis Skin cancer Mother History of prediabetes Gestational diabetes Family estrangement Mental health problem Obesity Hypertension Hyperlipidemia Grandfather Family estrangement Grandmother Depression Arthritis Hypertension Grandfather Cancer Pancreatic cancer Grandmother Cancer Breast cancer Colon cancer Pancreatic cancer Sister Anxiety Depression Brother No problems noted. Sister Insulin dependent diabetes mellitus Sister Anxiety Social History marital status: number of children: 2 household members: spouse and children lives independently: Yes caregiver/support person: No housing: house pets and animals: No education level: vocational occupational status: employed current occupational exposures/hazards: No special amalia needs: No travel history: recent seatbelt use: always water heater temp set < 120 deg: Yes working smoke detector in home: Yes fire extinguisher in home: Yes carbon monox detector in home: Yes firearms in home: Yes firearms unloaded and locked: Yes do you feel safe at home: Yes Smoking Status: Never smoker Smokeless tobacco user: dissolvable tobacco quit status: has quit before second hand exposure: No alcohol intake: former substance use type: marijuana during the past year weight has: other well-balanced diet: daily or most days daily servings fruits/ve-4 caffeine: Yes (Aware of 200mg limit) Type(s) of exercise: walking Meds Home Medications and Allergies Home Medications Medication Instructions Recorded Confirmed Type prenat.vits,rin,mvs-xvsg-vnryp 1 tab PO DAILY 06/02/21 03/24/23 History albuterol sulfate 90 mcg/actuation 2 puff inhalation Q4-6H PRN 12/19/21 03/24/23 Rx aerosol inhaler shortness of breath #8.5 grams sertraline 100 mg tablet 200 mg PO DAILY #180 tabs 05/26/22 03/24/23 Rx ondansetron 4 mg disintegrating 4 mg PO Q8H PRN nausea and 01/12/23 03/24/23 Rx tablet vomiting #30 tabs Allergies Allergy/AdvReac Type Severity Reaction Status Date / Time tramadol Allergy Severe Vomiting, Verified 03/16/23 08:59 Diarrhea amoxicillin Allergy Hives Verified 03/16/23 08:59 azithromycin Allergy Hives Verified 03/16/23 08:59 dairy AdvReac Intermediate GI Uncoded 03/16/23 08:59 symptoms : bloating, migraines. Better with . OB Exam Narrative Exam Narrative: Gen: NAD, sitting comfortably in bed, appears well CV: RRR, no murmurs Resp: clear to auscultation bilaterally Abd: soft, nontender, gravid Ext: no edema Objective Labs 03/24/23 10:40 Labs: Laboratory Results - last 24 hr 03/24/23 10:40 WBC 8.4 RBC 3.72 L Hgb 10.9 L Hct 32.6 L MCV 87.6 MCH 29.3 MCHC 33.4 RDW 13.5 Plt Count 166 Neut % (Auto) 75.2 H Lymph % (Auto) 15.7 L Wetzel % (Auto) 7.7 Eos % (Auto) 1.0 L Baso % (Auto) 0.4 Neut # (Auto) 6300 Lymph # (Auto) 1300 Wetzel # (Auto) 700 Eos # (Auto) 100 Baso # (Auto) 0 Assessment and Plan Assessment and Plan Assessment and Plan narrative: 27yo at 39w4d here for elective IOL. complicated by depression, on Sertraline. GBS negative, Rh positive. Vela score 10. After informed consent, AROM performed with production of clear fluid. - Expectant management, anticipate - FHT reassuring - GBS negative, no prophylaxis indicated - Epidural for pain control when desired - Start pitocin, titrate as tolerated
--- NOTE | 2023-03-24 14:06 | PM.AN.REGBLK ---
Regional Block Pre-procedure Procedure: Continuous Lumbar Epidural for L&D PMH/ROS narrative: in labor pain PSH/Anesthesia history narrative: None Exam narrative: WNL Labs: Hct 32.6 % (36-46) L 03/24/23 10:40 Plt Count 166 X10^3/uL (150-400) 03/24/23 10:40 Medications: Current Medications Generic Name Dose Route Start Last Admin Trade Name Freq PRN Reason Stop Dose Admin Calcium Carbonate 1,000 mg 03/24/23 10:45 Calcium Carbonate 500 Mg Tab PO Q4HR PRN Dyspepsia Carboprost Tromethamine 250 mcg 03/24/23 10:45 Carboprost 250 Mcg/Ml Ampul IM Q90M PRN Bleeding Fentanyl 50 mcg 03/24/23 10:45 Fentanyl 100 Mcg/2 Ml Inj IV Q1H PRN Pain, Moderate (4-6) Oxytocin/Lactated Ringer's 30 unit in 500 mls @ 2 mls/hr 03/24/23 10:45 Oxytocin Premix IV TITRATE FAUSTO Protocol 2 MILLIUNIT/MIN Lactated Ringer's 1,000 mls @ 100 mls/hr 03/24/23 10:45 03/24/23 13:59 Lactated Ringers IV 100 mls/hr CONT FAUSTO Administration Tranexamic Acid 1,000 mg/ 100 mls @ 200 mls/hr 03/24/23 10:45 Sodium Chloride IV NOW PRN Bleeding Oxytocin/Lactated Ringer's 30 unit in 500 mls @ 200 mls/hr 03/24/23 10:45 Oxytocin Premix IV CONT PRN Bleeding Protocol Lidocaine HCl 20 ml 03/24/23 10:45 Lidocaine 1% 20 Ml INJ INTRA-OP PRN Post Delivery Methylergonovine Maleate 0.2 mg 03/24/23 10:45 Methylergonovine 0.2 Mg/Ml Vial IM NOW PRN Bleeding Methylergonovine Maleate 0.2 mg 03/24/23 10:45 Methylergonovine 0.2 Mg Tablet PO Q6HR PRN Heavy Bleeding Misoprostol 800 mcg 03/24/23 10:45 Misoprostol 200 Mcg Tablet CO NOW PRN Bleeding Misoprostol 400 mcg 03/24/23 10:45 Misoprostol 200 Mcg Tablet SL NOW PRN Bleeding Naloxone HCl 0.2 mg 03/24/23 10:45 Naloxone 0.4 Mg/Ml Vial IV Q2MIN PRN Opiate Reversal Ondansetron HCl 4 mg 03/24/23 10:45 Ondansetron 4 Mg/2 Ml Inj IV Q4HR PRN Nausea And Vomiting Oxytocin 10 unit 03/24/23 10:45 Oxytocin 10 Unit/Ml Vial IM NOW PRN Bleeding Allergies: Allergies Allergy/AdvReac Type Severity Reaction Status Date / Time tramadol Allergy Severe Vomiting, Verified 03/16/23 08:59 Diarrhea amoxicillin Allergy Hives Verified 03/16/23 08:59 azithromycin Allergy Hives Verified 03/16/23 08:59 dairy AdvReac Intermediate GI Uncoded 03/16/23 08:59 symptoms : bloating, migraines. Better with . Procedure Insertion date: 03/24/23 Insertion time: 13:45 Prep/Local: betadine x3 (Chloroprep) and 1% lidocaine Interspace: L4-5 Patient position: sitting Needle: 18 gauge Hustead Loss of resistance with: air JESUS at (cm): 7 Catheter placed at SKIN (cm): 12 Catheter in SPACE (cm): 5 Initial Medications TEST DOSE time: 13:50 BOLUS DOSE time: 13:55 BOLUS DOSE (mL): 10 BOLUS DOSE med: 0.25% bupivacaine (and Fentanyl 100mcg) Infusion Initial rate (mL/hr): 12
--- NOTE | 2023-03-24 19:20 | P.PCNOB_ITS ---
Labor & Delivery Delivery date: 03/24/23 Cervical ripening method: none Induction method: per pitocin protocol Delivery augmentation: rupture of membranes Delivery monitor: external FHT and external uterine Route of delivery: Episiotomy description: None L&D Laceration Description: Perineal - 2nd Degree Quantitative Blood Loss: 250 Anesthesia Type: Epidural Narrative: PROCEDURE: at 39w4d presented for elective IOL and was admitted to Labor and Delivery. She was initiated on pitocin. The patient progressed through the 1st stage over 4 hours. ROM occured at 13:02 with clear fluid. Pain was controlled with an epidural. The patient progressed through the 2nd stage over 2 hours and delivered a viable male with APGARs 9/8 at 18:44 via without complications. The cord was cut and clamped after it stopped pulsating. The placenta delivered with gentle cord traction, and appeared complete. The perineum and vagina were inspected with small 2nd degree laceration repaired with 2-O Chromic. Needle and sponge counts were correct.? The vagina was inspected and no items were left in situ. Cindy was doing well with her and her at bedside. PREPROCEDURE DIAGNOSIS: Intrauterine at 39w4d GBS negative RH positive POSTPROCEDURE DIAGNOSIS: Intrauterine at 39w4d, delivered Same as preprocedure [place] [facility] 1: gender: Male Presentation: vertex Position: Left Occiput Anterior Placenta delivery description: Spontaneous Cord Vessel Description: 3 Vessels score (1 min): 8 score (5 min): 9 weight: 8 lb 1.667 oz Plan for aftercare: Routine care
[2023-03-24] MEDS: DERMOPLAST SPRAY 20% 60 ML 1 SPRAY TOP (22:02)
[2023-03-24] MEDS: LANOLIN OINT 7 GM 1 APPLIC TOP (22:02)
[2023-03-24] MEDS: IBUPROFEN 600 MG TABLET PO (22:02)
[2023-03-25] MEDS: ACETAMINOPHEN 325 MG TABLET 650 MG PO ×2 (08:04→13:43)
[2023-03-25] MEDS: PRENATAL VIT,CALC/IRON/FOLIC 1 TABLET 1 TAB PO (08:04)
[2023-03-25] MEDS: SERTRALINE 50 MG TABLET 200 MG PO (08:05)
[2023-03-25] MEDS: DOCUSATE 100 MG CAPSULE PO (08:05)
[2023-03-25] MEDS: IBUPROFEN 600 MG TABLET PO ×2 (08:05→13:43)
[2023-03-25] MEDS: FERROUS SULFATE 325 MG TABLET PO (08:05)
--- NOTE | 2023-03-25 14:54 | PM.AN.REGBLK ---
Regional Block Pre-procedure Labs: Hct 32.6 % (36-46) L 03/24/23 10:40 Plt Count 166 X10^3/uL (150-400) 03/24/23 10:40 Medications: Current Medications Generic Name Dose Route Start Last Admin Trade Name Alfred PRN Reason Stop Dose Admin Acetaminophen 650 mg 03/24/23 19:50 03/25/23 13:43 Acetaminophen 325 Mg Tablet PO 650 mg Q6HR PRN Administration Pain, Mild (1-3) Benzocaine 1 spray 03/24/23 19:50 03/24/23 22:02 Dermoplast [place] 20% 60 Ml TOP 1 spray Q1HR PRN Administration perineal pain Carboprost Tromethamine 250 mcg 03/24/23 19:50 Carboprost 250 Mcg/Ml Ampul IM Q90MIN PRN Bleeding Docusate Sodium 100 mg 03/25/23 09:00 03/25/23 08:05 Docusate 100 Mg Capsule PO 100 mg DAILY FAUSTO Administration Emollient Ointment 1 applic 03/24/23 19:50 03/24/23 22:02 Lanolin Oint 7 Gm TOP 1 applic PRN PRN Administration Tenderness Ferrous Sulfate 325 mg 03/25/23 09:00 03/25/23 08:05 Ferrous Sulfate 325 Mg Tablet PO 325 mg DAILY FAUSTO Administration Tranexamic Acid 1,000 mg/ 100 mls @ 200 mls/hr 03/24/23 19:50 Sodium Chloride IV NOW PRN Bleeding Oxytocin/Lactated Ringer's 30 unit in 500 mls @ 200 mls/hr 03/24/23 19:50 Oxytocin Premix IV CONT PRN Bleeding Protocol Ibuprofen 600 mg 03/24/23 19:50 03/25/23 13:43 Ibuprofen 600 Mg Tablet PO 600 mg Q6HR PRN Administration Pain, Mild (1-3) Methylergonovine Maleate 0.2 mg 03/24/23 19:50 Methylergonovine 0.2 Mg/Ml Vial IM NOW PRN Bleeding Methylergonovine Maleate 0.2 mg 03/24/23 19:50 Methylergonovine 0.2 Mg Tablet PO Q6HR PRN Heavy bleeding Misoprostol 400 mcg 03/24/23 19:50 Misoprostol 200 Mcg Tablet SL NOW PRN Bleeding Misoprostol 1,000 mcg 03/24/23 19:50 Misoprostol [address] NOW PRN Bleeding Misoprostol 800 mcg 03/24/23 19:50 Misoprostol [address] NOW PRN Bleeding Naloxone HCl 0.2 mg 03/24/23 19:50 Naloxone 0.4 Mg/Ml Vial IV Q2MIN PRN Opiate Reversal Oxycodone HCl 5 mg 03/24/23 19:50 Oxycodone Ir 5 Mg Tablet PO Q4HR PRN Pain, Moderate (4-6) Oxytocin 10 unit 03/24/23 19:50 Oxytocin 10 Unit/Ml Vial IM NOW PRN Bleeding Vit/Calcium/Iron/Folic Ac 1 tab 03/25/23 09:00 03/25/23 08:04 Vit,Calc/Iron/Folic 1 Tablet PO 1 tab DAILY FAUSTO Administration Rho Immune Globulin 1,500 unit 03/24/23 19:50 Rho(D) Immune Globulin 1,500 Unit Syringe IM NOW PRN Mom Rh neg, Infant Rh pos Sertraline HCl 200 mg 03/25/23 09:00 03/25/23 08:05 Sertraline 50 Mg Tablet PO 200 mg DAILY FAUSTO Administration Allergies: Allergies Allergy/AdvReac Type Severity Reaction Status Date / Time tramadol Allergy Severe Vomiting, Verified 03/16/23 08:59 Diarrhea amoxicillin Allergy Hives Verified 03/16/23 08:59 azithromycin Allergy Hives Verified 03/16/23 08:59 dairy AdvReac Intermediate GI Uncoded 03/16/23 08:59 symptoms : bloating, migraines. Better with . Post-procedure Anesthesia time END: 18:44 Post-procedure Anesthesia Assessment: Yes CV function: HR/BP stable, Yes Resp function: RR/sat/airway adequate, Yes Post-op hydration adequate, Yes Pain control adequate, Yes Nausea & vomiting absent, Yes Temperature > 36 C and Yes Mental status appropriate
[2023-03-25 15:17] VITALS: BP 107/60; PULSE 68; RESP 16; TEMP 37.1
== END 2023-03-25 18:15 | disposition home or self-care (01) | DRG 806 ==
PROVIDERS: Admitting Provider Family Medicine; PCP Family Medicine; Referring Provider Family Medicine; Visit Provider Family Medicine
DX: O99.344 Other mental disorders complicating childbirth (principal); O47.1 False labor at or after 37 completed weeks of gestation; Z37.0 Single live birth; F32.A Depression, unspecified; O70.1 Second degree perineal laceration during delivery; Z3A.39 39 weeks gestation of pregnancy; Z67.40 Type O blood, Rh positive; Z03.71 Encounter for suspected problem with amniotic cavity and membrane ruled out
CPT/HCPCS: 36415; 59025; 59050; 59400; 84112; 85025; 86850; 86900; 86901; G0379; J2590

== ENCOUNTER → 2023-11-18 06:44 | Outpatient (CLI) | payer OTHER, SELFPAY ==
--- NOTE | 2023-11-18 06:45 | DI.US.S_ITS ---
PROCEDURE: US OB <= 14 WEEKS FETUS INDICATIONS: dating and viability, unclear dates OUTSIDE/PRIOR DATING DATA: Last menstrual period (LMP): Unknown. LMP-based estimated date of delivery (TANGELA): Not applicable. First dating scan (date and location): Today's exam. Estimated date of delivery (TANGELA) from first dating scan: 07/11/2024. TECHNIQUE: Real-time scanning was performed of the fetus and maternal pelvic organs, with image documentation. Endovaginal scanning was also performed to better visualize the fetus and maternal ovaries. COMPARISON: None. FINDINGS: Embryo: Single living intrauterine . The pole measures 5 millimeters, corresponding to 6 weeks 2 days. Heart rate: 115 beats per minute Maternal organs: Ovaries are unremarkable. IMPRESSION: Single living intrauterine at 6 weeks 2 days, TANGELA of 07/11/2024. We strive to produce accurate, complete, and clear reports of imaging services. To assist us in improving patient care, this report was composed using standard report templates and voice recognition software. Therefore, it may contain abnormal punctuation, insertions and/or omissions. Occasional wrong-word or sound-alike substitutions may occur. Though we review the report and make efforts to correct it, we do recommend that the report be read carefully in proper context to recognize any text inaccuracies. Dictated by: Gurwinder Blanca M.D. on 11/18/2023 at 13:40 Approved by: Gurwinder Blanca M.D. on 11/18/2023 at 13:50
== END ==
LOC: US 06:45
PROVIDERS: PCP Family Medicine; Referring Provider Family Medicine; Visit Provider Family Medicine
DX: Z34.81 Encounter for supervision of other normal pregnancy, first trimester (principal); Z3A.01 Less than 8 weeks gestation of pregnancy
CPT/HCPCS: 76801; 76817

== ENCOUNTER → 2024-01-18 08:57 | Outpatient (CLI) | payer OTHER, SELFPAY ==
--- NOTE | 2024-01-18 08:57 | DI.RAD.S_ITS ---
PROCEDURE: FL GUIDED PICC PLACEMENT INDICATIONS: Mild hyperemesis gravidarum COMPARISON: None. FINDINGS: PICC was placed by the intravenous therapy team from the left side. Fluoroscopic spot film demonstrates the tip of PICC projecting to the area of SVC. IMPRESSION: Tip of PICC projects to the area of SVC. Dictated by: José Carlson M.D. on 01/18/2024 at 13:50 Approved by: José Carlson M.D. on 01/18/2024 at 13:54
== END ==
PROVIDERS: PCP Family Medicine; Referring Provider Family Medicine; Visit Provider Family Medicine
DX: O21.0 Mild hyperemesis gravidarum (principal); Z45.2 Encounter for adjustment and management of vascular access device
CPT/HCPCS: 36573

== ENCOUNTER 2024-01-20 18:32 | Emergency (ER) | payer OTHER, SELFPAY ==
[2024-01-20 18:38] VITALS: BP 121/75; PULSE 77; RESP 18; TEMP 36.9; O2SAT 100; BMI 25.7
== END 2024-01-20 20:35 | disposition left against medical advice (07) ==
PROVIDERS: Emergency Provider Emergency Medicine; PCP Family Medicine
DX: M79.621 Pain in right upper arm (principal)
CPT/HCPCS: 99281

== ENCOUNTER → 2024-02-08 09:13 | Outpatient (CLI) | payer OTHER, SELFPAY | PROVIDERS: PCP Family Medicine; Visit Provider Family Medicine | DX: Z34.80 Encounter for supervision of other normal pregnancy, unspecified trimester (principal) | CPT/HCPCS: 82105; 82677; 84702; 86336 ==

== ENCOUNTER → 2024-03-02 08:07 | Outpatient (CLI) | payer OTHER, SELFPAY ==
[2024-03-02 08:33] LABS: Add Manual Diff / Slide Review NO; Basophils Absolute Auto 0 /uL (0-100); Basophils Percent Auto 0.6 % (0-2); Eosinophils Absolute Auto 100 /uL (0-450); Eosinophils Percent Auto 0.9 % (2-4); Hematocrit 33.1 % (36-46); Hemoglobin 11.1 g/dL (12.0-16.0); Lymphocytes Absolute Auto 1100 /uL (1100-4500); Lymphocytes Percent Auto 12.7 % (25-40); Mean Corpuscular HGB Conc 33.6 % (30-36); Mean Corpuscular Hemoglobin 30.9 PG (26-34); Mean Corpuscular Volume 92.1 fL (80-100); Monocytes Absolute Auto 400 /uL (0-900); Neutrophils Absolute Auto 7000 /uL (1500-7000); Neutrophils Percent Auto 80.8 % (50-75); Platelet Count 178 X10^3/uL (150-400); Red Cell Distribution Width 12.9 % (11.6-14.8); White Blood Cell Count 8.7 X10^3/uL (4.5-11.0)
[2024-03-02 17:28] LABS: Hepatitis B Surface Antigen NEGATIVE s/c (NEGATIVE); Rubella Antibody IgG 25.6 IU/mL (>15)
[2024-03-02 17:46] LABS: HIV 1 & 2 Ab/Ag 4th Gen Combo NEGATIVE (NEGATIVE); Hep C Virus Ab w/Reflex Quant NEGATIVE s/c (NEGATIVE)
[2024-03-03 02:36] LABS: RPR Screen Non Reactive (Non Reactive)
[2024-03-03 08:36] LABS: Varicella IgG Antibody 568 index (Immune >165)
== END ==
PROVIDERS: PCP Family Medicine; Referring Provider Family Medicine; Visit Provider Family Medicine
DX: Z34.80 Encounter for supervision of other normal pregnancy, unspecified trimester (principal)
CPT/HCPCS: 36415; 80055; 86787; 86803; 86850; 86900; 86901; 87389

== ENCOUNTER → 2024-03-09 15:10 | Outpatient (CLI) | payer OTHER, SELFPAY ==
--- NOTE | 2024-03-09 15:11 | DI.US.S_ITS ---
PROCEDURE: US OB >= 14 WEEKS FETUS INDICATIONS: anatomy OUTSIDE/PRIOR DATING DATA: Last menstrual period (LMP): Unknown LMP-based estimated date of delivery (TANGELA): Unknown First dating scan (date and location): 11/18/2023 Estimated date of delivery (TANGELA) from first dating scan: 07/11/2024 The calculations are made using the working TANGELA of 07/11/2024 TECHNIQUE: Real-time scanning was performed of the fetus, with image documentation and biometric measurements. Endovaginal scanning: Not performed COMPARISON: [facility], OB >= 14 WEEKS FETUS, 11/10/2022, 10:20. FINDINGS: General: A single living intrauterine gestation is present. Presentation: Vertex Placenta: Placental position is posterior, without previa. Amniotic fluid index: 13.0 cm, normal range is 5-24 cm. Single deepest vertical pocket is 3.7 cm. heart rate: 135 beats per minute. Maternal cervical canal: Closed and measures 3.5 cm long. Normal lower limit is 2.5 cm. biometrics: Biparietal diameter: 5.2 cm, 21 weeks, 5 days. Head circumference: 19.5 cm, 21 weeks, 5 days. Abdominal circumference: 17.5 cm, 22 weeks, 3 days. Femur length: 3.9 cm, 22 weeks, 3 days. Clinically estimated gestational age: 22 weeks, 2 days Composite gestational age from present scan: 22 weeks, 1 day Estimated weight and percentile: 497 g, 47%. Anatomic survey: Neuro: Ventricles are non-dilated at less than 10 mm. Cisterna magna is normal at 3-11 mm. Cerebellum is normal in size and morphology. Nuchal skin fold: Normal at less than 6 mm between 14-21 weeks gestational age. Face: Nose and lips, facial profile are normal. Spine: No evidence for spina bifida. Heart: 4-chambered heart is present, with normal ventricular outflow tracts. Diaphragm: Diaphragm is intact. Stomach: Left-sided stomach is present. Kidneys: No hydronephrosis. Normal is less than 5 mm in 2nd trimester, less than 7 mm in 3rd trimester. Cord: 3-vessel cord has orthotopic insertion. Bladder: Normal in size. Extremities: All 4 extremities identified. IMPRESSION: 1. Single live intrauterine gestation with fetus in vertex presentation. heart rate is 135 beats per minute. Normal amount of amniotic fluid. CHELLY equals 13.0 cm. Normal growth. Estimated weight is at 47%. 2. Normal anatomic survey. We strive to produce accurate, complete, and clear reports of imaging services. To assist us in improving patient care, this report was composed using standard report templates and voice recognition software. Therefore, it may contain abnormal punctuation, insertions and/or omissions. Occasional wrong-word or sound-alike substitutions may occur. Though we review the report and make efforts to correct it, we do recommend that the report be read carefully in proper context to recognize any text inaccuracies. Dictated by: José Carlson M.D. on 03/09/2024 at 17:20 Approved by: José Carlson M.D. on 03/09/2024 at 17:22
== END ==
PROVIDERS: PCP Family Medicine; Referring Provider Family Medicine; Visit Provider Family Medicine
DX: Z34.82 Encounter for supervision of other normal pregnancy, second trimester (principal); Z3A.22 22 weeks gestation of pregnancy
CPT/HCPCS: 76811

== ENCOUNTER → 2024-04-07 08:53 | Outpatient (CLI) | payer OTHER, SELFPAY ==
--- NOTE | 2024-04-07 08:54 | DI.US.S_ITS ---
PROCEDURE: US OB LIMITED INDICATIONS: growth OUTSIDE/PRIOR DATING DATA: Last menstrual period (LMP): Unknown LMP-based estimated date of delivery (TANGELA): Under known First dating scan (date and location): 11/18/2023 Estimated date of delivery (TANGELA) from first dating scan: 07/11/2024 The calculations are made using the working TANGELA of 07/11/2024. TECHNIQUE: Real-time scanning was performed of the fetus, with image documentation and biometric measurements. Endovaginal scanning: Not performed COMPARISON: [facility], OB >= 14 WEEKS FETUS, 03/09/2024, 15:32. [facility], OB LIMITED, 08/29/2021, 7:58. FINDINGS: General: A single living intrauterine gestation is present. Presentation: Vertex Placenta: Placental position is posterior, without previa. Amniotic fluid index: 12.1 cm, normal range is 5-24 cm. Single deepest vertical pocket is 5.5 cm. heart rate: 136 beats per minute. Maternal cervical canal: 3.6 cm long. Normal lower limit is 2.5 cm. biometrics: Biparietal diameter: 6.3 cm, 25 weeks, 4 days. Head circumference: 23.7 cm, 25 weeks, 6 days. Abdominal circumference: 22.4 cm, 26 weeks, 6 days. Femur length: 4.7 cm, 25 weeks, 5 days. Clinically estimated gestational age: 26 weeks, 3 days Composite gestational age from present scan: 26 weeks, 0 day. Estimated weight and percentile: 913 g, 32% IMPRESSION: 1. Single live intrauterine gestation with fetus in vertex presentation. heart rate is 136 beats per minute. Normal CHELLY at 12.1 cm. Normal growth with estimated weight measured at 32%. We strive to produce accurate, complete, and clear reports of imaging services. To assist us in improving patient care, this report was composed using standard report templates and voice recognition software. Therefore, it may contain abnormal punctuation, insertions and/or omissions. Occasional wrong-word or sound-alike substitutions may occur. Though we review the report and make efforts to correct it, we do recommend that the report be read carefully in proper context to recognize any text inaccuracies. Dictated by: José Carlson M.D. on 04/07/2024 at 12:06 Approved by: José Carlson M.D. on 04/07/2024 at 12:08
== END ==
PROVIDERS: PCP Family Medicine; Referring Provider Family Medicine; Visit Provider Family Medicine
DX: Z34.82 Encounter for supervision of other normal pregnancy, second trimester (principal); Z3A.26 26 weeks gestation of pregnancy
CPT/HCPCS: 76815

== ENCOUNTER → 2024-05-31 09:16 | Outpatient (CLI) | payer OTHER, SELFPAY ==
[2024-05-31 11:49] LABS: Add Manual Diff / Slide Review NO; Basophils Absolute Auto 0 /uL (0-100); Basophils Percent Auto 0.3 % (0-2); Eosinophils Absolute Auto 100 /uL (0-450); Eosinophils Percent Auto 0.8 % (2-4); Hematocrit 32.3 % (36-46); Hemoglobin 10.9 g/dL (12.0-16.0); Lymphocytes Absolute Auto 1500 /uL (1100-4500); Lymphocytes Percent Auto 17.1 % (25-40); Mean Corpuscular HGB Conc 33.7 % (30-36); Mean Corpuscular Hemoglobin 29.5 PG (26-34); Mean Corpuscular Volume 87.7 fL (80-100); Monocytes Absolute Auto 500 /uL (0-900); Monocytes Percent Auto 5.7 % (3-14); Neutrophils Absolute Auto 6900 /uL (1500-7000); Neutrophils Percent Auto 76.1 % (50-75); Platelet Count 150 X10^3/uL (150-400); Red Blood Cell Count 3.68 X10^6/uL (4.0-5.2); Red Cell Distribution Width 13.7 % (11.6-14.8)
[2024-05-31 13:46] LABS: GTT (PREG) 1 Hour PP 50gm Dose 170 mg/dL (76-139)
== END ==
PROVIDERS: PCP Family Medicine; Referring Provider Family Medicine; Visit Provider Family Medicine
DX: Z34.80 Encounter for supervision of other normal pregnancy, unspecified trimester (principal)
CPT/HCPCS: 36415; 82950; 85025; 86850

== ENCOUNTER → 2024-06-05 09:34 | Outpatient (CLI) | payer OTHER, SELFPAY ==
[2024-06-05 11:21] LABS: Glucose Fasting Gestational 75 mg/dL (76-95)
[2024-06-05 11:48] LABS: Glucose 1 Hour Gest 127 mg/dL (76-180)
[2024-06-05 13:17] LABS: Glucose 2 Hour Gest 125 mg/dL (76-155)
[2024-06-05 15:57] LABS: Glucose Tol Interp,Gestational INTERPRETATION
[2024-06-05 16:06] LABS: Glucose 3 Hour Gest 95 mg/dL (76-140)
== END ==
PROVIDERS: PCP Family Medicine; Referring Provider Family Medicine; Visit Provider Family Medicine
DX: O99.810 Abnormal glucose complicating pregnancy (principal)
CPT/HCPCS: 36415; 82951; 82952

== ENCOUNTER → 2024-06-16 10:44 | Outpatient (CLI) | payer OTHER, SELFPAY ==
[2024-06-17 15:43] LABS: Strep Grp B PCR NEG for Grp B Strep
== END ==
PROVIDERS: PCP Family Medicine; Visit Provider Family Medicine
DX: Z34.80 Encounter for supervision of other normal pregnancy, unspecified trimester (principal)
CPT/HCPCS: 87653

== ENCOUNTER → 2024-06-21 12:04 | Outpatient (CLI) | payer OTHER, SELFPAY ==
--- NOTE | 2024-06-21 12:05 | DI.US.S_ITS ---
PROCEDURE: US OB LIMITED INDICATIONS: growth size < dates OUTSIDE/PRIOR DATING DATA: Last menstrual period (LMP): Unknown. LMP-based estimated date of delivery (TANGELA): Unknown First dating scan (date and location): 11/18/2023. Estimated date of delivery (TANGELA) from first dating scan: 07/11/2024. The calculations are made using the ultrasound TANGELA of 07/11/2024. TECHNIQUE: Real-time scanning was performed of the fetus, with image documentation and biometric measurements. COMPARISON: [facility], , OB LIMITED, 04/07/2024, 9:07. FINDINGS: General: A single living intrauterine gestation is present. Presentation: Vertex. Placenta: Placental position is posterior , without previa. Amniotic fluid index: 8.7 cm, normal range is 5-24 cm. Single deepest vertical pocket is 4.3 cm. heart rate: 135 beats per minute. Maternal cervical canal: Not measured biometrics: Biparietal diameter: 8.9 cm 36 weeks 1 day Head circumference: 32.4 cm 36 weeks 5 days Abdominal circumference: 33.3 cm 37 weeks 1 day Femur length: 6.8 cm 35 weeks 0 days Clinically estimated gestational age: 37 weeks 1 day Composite gestational age from present scan: 36 weeks 2 days Estimated weight and percentile: 2952 g 39th percentile Other: Not applicable. IMPRESSION: Single live intrauterine with gestational age today of 36 weeks 2 days. weight is the 39th percentile. CHELLY is within normal limits. We strive to produce accurate, complete, and clear reports of imaging services. To assist us in improving patient care, this report was composed using standard report templates and voice recognition software. Therefore, it may contain abnormal punctuation, insertions and/or omissions. Occasional wrong-word or sound-alike substitutions may occur. Though we review the report and make efforts to correct it, we do recommend that the report be read carefully in proper context to recognize any text inaccuracies. Dictated by: Nicky Bethea M.D. on 06/21/2024 at 16:50 Approved by: Nicky Bethea M.D. on 06/21/2024 at 16:52
== END ==
PROVIDERS: PCP Family Medicine; Referring Provider Family Medicine; Visit Provider Family Medicine
DX: Z34.83 Encounter for supervision of other normal pregnancy, third trimester (principal); Z3A.36 36 weeks gestation of pregnancy
CPT/HCPCS: 76815

== ENCOUNTER 2024-07-02 16:07 | Inpatient (IN) | payer OTHER, SELFPAY ==
[2024-07-02 18:17] VITALS: BP 125/71
[2024-07-02 19:17] LABS: Add Manual Diff / Slide Review NO; Basophils Absolute Auto 0 /uL (0-100); Basophils Percent Auto 0.3 % (0-2); Eosinophils Absolute Auto 100 /uL (0-450); Hematocrit 33.5 % (36-46); Lymphocytes Absolute Auto 1800 /uL (1100-4500); Lymphocytes Percent Auto 19.3 % (25-40); Mean Corpuscular HGB Conc 32.9 % (30-36); Mean Corpuscular Hemoglobin 28.6 PG (26-34); Mean Corpuscular Volume 86.9 fL (80-100); Monocytes Absolute Auto 800 /uL (0-900); Monocytes Percent Auto 8.5 % (3-14); Neutrophils Absolute Auto 6600 /uL (1500-7000); Neutrophils Percent Auto 70.9 % (50-75); Platelet Count 166 X10^3/uL (150-400); Red Blood Cell Count 3.86 X10^6/uL (4.0-5.2); Red Cell Distribution Width 14.4 % (11.6-14.8); White Blood Cell Count 9.3 X10^3/uL (4.5-11.0)
[2024-07-03] MEDS: OXYTOCIN PREMIX 30 UNIT/500 ML PLAST..BAG IV (01:08)
[2024-07-03 01:47] VITALS: BP 108/59
--- NOTE | 2024-07-03 05:07 | P.PCN_ITS ---
Regional Block Pre-procedure Procedure: Continuous Lumbar Epidural for L&D Attending OB provider: Brooke Booker PMH/ROS narrative: with PMH of depression/anxiety, ADHD, and asthma presents in active labor requesting AMAYA for labor pain. PSH/Anesthesia history narrative: Epidural catheters x 2 for previous vaginal deliveries. Pt states she can sometimes feel pain when she presses on her back in the area where the last epidural catheter was placed (March 2023). Thumb surgery Tonsillectomy Exam narrative: See preanesthesia evaluation. ASA Class: II Labs: Hct 33.5 % (36-46) L 07/02/24 18:50 Plt Count 166 X10^3/uL (150-400) 07/02/24 18:50 Medications: Current Medications Generic Name Dose Route Start Last Admin Trade Name Freq PRN Reason Stop Dose Admin Carboprost Tromethamine 250 mcg 07/02/24 18:01 Carboprost 250 Mcg/Ml Ampul IM Q90M PRN Bleeding Diphenhydramine HCl 25 mg 07/03/24 05:03 Diphenhydramine 50 Mg/Ml Vial IV 07/04/24 05:04 Q3HR PRN PRURITUS Diphenhydramine HCl 25 mg 07/03/24 05:04 Diphenhydramine 50 Mg/Ml Vial IV Q10M PRN Pruritis Ephedrine Sulfate 10 mg 07/03/24 05:04 Ephedrine 50 Mg/Ml Vial IV Q5M PRN Blood pressure decrease more than 20% of baseline. Oxytocin/Lactated Ringer's 30 unit in 500 mls @ 200 mls/hr 07/02/24 18:01 Oxytocin Premix IV CONT PRN Bleeding Protocol Tranexamic Acid 1,000 mg/ 100 mls @ 600 mls/hr 07/02/24 18:01 Sodium Chloride IV NOW PRN Bleeding Oxytocin/Lactated Ringer's 30 unit in 500 mls @ 2 mls/hr 07/03/24 00:30 07/03/24 01:08 Oxytocin Premix IV 2 milliunit/min TITRATE FAUSTO 2 mls/hr Administration Protocol 2 MILLIUNIT/MIN Lactated Ringer's 1,000 mls @ 100 mls/hr 07/03/24 05:15 Lactated Ringers IV CONT FAUSTO FENT 2MCG/ML BUPIV 0.125% EPI 200 mcg in 100 mls @ 8 mls/hr 07/03/24 04:50 Fentanyl/Bupiv/Ns 2mcg/Ml - 0.125% EPIDURAL CONT FAUSTO Lidocaine HCl 20 ml 07/02/24 18:01 Lidocaine 1% 20 Ml INJ INTRA-OP PRN Post Delivery Methylergonovine Maleate 0.2 mg 07/02/24 18:01 Methylergonovine 0.2 Mg Tablet PO Q6HR PRN Heavy Bleeding Methylergonovine Maleate 0.2 mg 07/02/24 18:01 Methylergonovine 0.2 Mg/Ml Vial IM NOW PRN Bleeding Mineral Oil 30 ml 07/02/24 18:01 Mineral Oil 30 Ml Udc TOP PRN PRN Version Misoprostol 800 mcg 07/02/24 18:01 Misoprostol 200 Mcg Tablet HI NOW PRN Bleeding Misoprostol 400 mcg 07/02/24 18:01 Misoprostol 200 Mcg Tablet SL NOW PRN Bleeding Nalbuphine HCl 5 mg 07/03/24 05:03 Nalbuphine 20 Mg/Ml Ampul IV Q6H PRN PRURITIS Nalbuphine HCl 2.5 mg 07/03/24 05:04 Nalbuphine 20 Mg/Ml Ampul IV Q10M PRN Pruritis Naloxone HCl 0.2 mg 07/02/24 18:01 Naloxone 0.4 Mg/Ml Vial IV Q2MIN PRN Opiate Reversal Naloxone HCl 0.4 mg 07/03/24 05:03 Naloxone 0.4 Mg/Ml Vial IV Q2MIN PRN Opiate Reversal Ondansetron HCl 4 mg 07/03/24 09:00 Ondansetron 4 Mg/2 Ml Inj IV 07/03/24 13:01 Q4HR [facility] Oxytocin 10 unit 07/02/24 18:01 Oxytocin 10 Unit/Ml Vial IM NOW PRN Bleeding Allergies: Allergies Allergy/AdvReac Type Severity Reaction Status Date / Time tramadol Allergy Severe Vomiting, Verified 06/28/24 13:44 Diarrhea amoxicillin Allergy Hives Verified 06/28/24 13:44 azithromycin Allergy Hives Verified 06/28/24 13:44 dairy AdvReac Intermediate GI Uncoded 06/28/24 13:44 symptoms : bloating, migraines. Better with . Procedure Insertion date: 07/03/24 Insertion time: 04:39 Prep/Local: 1% lidocaine (3mL at interspace (CHG to back for skin prep)) Interspace: L4/5 Patient position: sitting Needle: 18 gauge Hustead (27g Pencan through hustead - 0.75mL MPF 0.25% bupivac juventino via CSE) Loss of resistance with: saline JESUS at (cm): 6 Catheter placed at SKIN (cm): 12 Catheter in SPACE (cm): 6 Sensory level: T10 Insertion: No CSF, No Blood, No Paresthesia with insertion, No Paresthesia with injection and No Test dose reaction Initial Medications TEST DOSE time: 04:40 TEST DOSE: 1.5% lidocaine with epinephrine 1:200k (mL): 3 Infusion INFUSION: 0.125% bupivacaine and with fentanyl 2 mcg/mL Initial rate (mL/hr): 8 Subsequent interventions: 0540 Pt lying supine since CSE. Reports contraction pain on L side only. Repositioned to L side and bolused 8mL infusate + PCEA of 5mL. Now reports feeling comfortable. 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
--- NOTE | 2024-07-03 07:46 | P.HPOB_ITS ---
OB HPI Date/Time Date of admission: 07/02/24 Date Patient Seen: 07/03/24 Time Patient Seen: 07:46 History of Present Condition Chief complaint: Observation TANGELA Calculator 2 Estimated Delivery Date Method Current WG Current Estimate 07/11/24 Manual 38w 6d Final TANGELA - TEMO Other Estimates 06/19/24 LMP (Uncertain) 42w 0d 07/11/24 Ultrasound #1 38w 6d Estimated Gestational Age (weeks): 38w6d : 3 Para: 2 Narrative: 28yo at 38w6d here with regular contractions. Pt reports contractions starting yesterday afternoon, increasing in intensity since then. She also had concerns for leaking fluid. She denies any vaginal bleeding. She is feeling her baby move regularly. The pts was complicated by depression/anxiety stable on Sertraline, and hyperemesis requiring frequent IV infusions for management. care: good care, initiated at week # (7) and pounds weight gain (11) Dating criteria OB: based on 1st trimester US only Ultrasounds: normal 1st trimester US and normal mid trimester US Obstetrical complications: hyperemesis Medical complications OB: psychiatric Preadmission Labs Last OB Lab Results: 2 Blood Type O Positive 07/02/24 18:50 Antibody Screen Negative 07/02/24 18:50 Hct 33.5 % (36-46) L 07/02/24 18:50 Hgb 11.0 g/dL (12.0-16.0) L 07/02/24 18:50 Hep Bs Antigen Negative s/c (NEGATIVE) 03/02/24 08:10 Hepatitis C Antibody Negative s/c (NEGATIVE) 03/02/24 08:10 Rubella Antibody 25.6 IU/mL (>15) 03/02/24 08:10 VZV IgG Antibody 568 index (Immune >165) 03/02/24 08:10 Glucose 1 Hr 50 gm 170 mg/dL (76-139) H 05/31/24 10:50 Group B Strep (PCR) Neg for grp b strep 06/16/24 10:44 Glucose Tolerance Testing: Fasting (75), 1 hr (127), 2 hr (125) and 3 hr (95) -: Urine: negative Genetic Screens: Quad screen: Normal External Labs -: Urine: negative Prior (ies) Past Pregnancies Del. Date GA/Weeks Labor Lgth Wt Sex Route Outcome Anesthesia Place Delv Breastfeed Preg Comp Name 11/04/21 39 10 6 lb 15.677 oz Female vaginal live - ful l term epidural [facility] 5 months hemorrhage Radha 03/24/23 39 4 8 lb 2 oz Male vaginal live - full term epidur al [facility] 6 weeks none Seth Evaluation Evaluation Baseline heart rate: 150 Variability: Moderate (11-25) monitor accelerations: Present Monitor Decelerations: Absent Contraction Frequency (minutes): 3 Status: Category l Dilation (cm): 9 Effacement (%): 100 station: +2 Comments: After informed consent, AROM performed with blood-tinged fluid present. [facility], [facility] Medical History (Updated 02/04/24 @ 00:00 by ) Carbon monoxide poisoning hemorrhage Spontaneous vaginal delivery Acne (~2009) Post traumatic stress disorder (PTSD) (~2014) Migraines (~2011) Carpal tunnel syndrome (~2019) Trichomoniasis of vagina Fracture of ischial tuberosity with delayed healing (~2011) Allergic rhinitis Asthma (~2005) ADHD (~2007) Lymphangioma, any site Anxiety (~2007) Depression (~2013) Surgical History Anesthesia History of tonsillectomy and adenoidectomy (~02/24/07) H/O hand surgery (~1998) Family History (Updated 11/17/23 @ 09:41 by Мария Suh RN) Father Depression IBS (irritable bowel syndrome) Anxiety Diverticulitis Skin cancer Mother History of prediabetes Gestational diabetes Family estrangement Mental health problem Obesity Hypertension Hyperlipidemia Grandfather Family estrangement Grandmother Depression Arthritis Hypertension Grandfather Cancer Pancreatic cancer Grandmother Cancer Breast cancer Colon cancer Pancreatic cancer Sister Anxiety Depression Brother No problems noted. Sister Insulin dependent diabetes mellitus Sister Anxiety Social History marital status: number of children: 2 household members: spouse, family and children lives independently: Yes caregiver/support person: Yes housing: house pets and animals: No education level: vocational occupational status: employed current occupational exposures/hazards: No special amalia needs: No travel history: recent seatbelt use: always water heater temp set < 120 deg: Yes working smoke detector in home: Yes fire extinguisher in home: Yes carbon monox detector in home: Yes firearms in home: Yes firearms unloaded and locked: Yes do you feel safe at home: Yes Smoking Status: Former smoker Tobacco: How many years used: 4 Smokeless tobacco user: dissolvable tobacco and other quit status: has quit before second hand exposure: No alcohol intake: former substance use type: marijuana during the past year weight has: other well-balanced diet: rarely or never daily servings fruits/ve-1 caffeine: Yes (Aware of 200mg limit) Type(s) of exercise: walking Meds Home Medications and Allergies Home Medications Medication Instructions Recorded Confirmed Type prenat.vits,rin,[id number] 1 tab PO DAILY 06/02/21 07/02/24 History albuterol sulfate 90 mcg/actuation 2 puff inhalation Q4-6H PRN 12/19/21 07/02/24 Rx aerosol inhaler shortness of breath #8.5 grams dextroamphetamine-amphetamine ER 10 mg PO DAILY #30 caps 12/27/23 07/02/24 Rx 10 mg 24hr capsule,extend release ondansetron 4 mg disintegrating 4 mg PO Q6H PRN nausea and 02/08/24 07/02/24 Rx tablet vomiting #30 tabs bupropion HCl 150 mg 24 hr tablet, 150 mg PO QAM #30 tabs 04/04/24 07/02/24 Rx extended release sertraline 100 mg tablet 150 mg (1.5 x 100 mg) PO DAILY 04/04/24 07/02/24 Rx #135 tabs Allergies Allergy/AdvReac Type Severity Reaction Status Date / Time tramadol Allergy Severe Vomiting, Verified 06/28/24 13:44 Diarrhea amoxicillin Allergy Hives Verified 06/28/24 13:44 azithromycin Allergy Hives Verified 06/28/24 13:44 dairy AdvReac Intermediate GI Uncoded 06/28/24 13:44 symptoms : bloating, migraines. Better with . OB Exam Resp Effort & Inspection: normal respiratory effort Auscultation: clear to auscultation bilaterally Cardio Rate: regular rate Rhythm: regular rhythm Heart Sounds: S1 normal, S2 normal and no murmurs GI Inspection: non-distended Palpation: Yes soft and No tender Presentation: vertex Objective Labs 07/02/24 18:50 Labs: Laboratory Results - last 24 hr 07/02/24 18:50 WBC 9.3 RBC 3.86 L Hgb 11.0 L Hct 33.5 L MCV 86.9 MCH 28.6 MCHC 32.9 RDW 14.4 Plt Count 166 Neut % (Auto) 70.9 Lymph % (Auto) 19.3 L [place] % (Auto) 8.5 Eos % (Auto) 1.0 L Baso % (Auto) 0.3 Neut # (Auto) 6600 Lymph # (Auto) 1800 [place] # (Auto) 800 Eos # (Auto) 100 Baso # (Auto) 0 Blood Type O Positive Antibody Screen Negative Assessment and Plan Assessment and Plan Assessment and Plan narrative: 28yo at 38w6d here in active labor. GBS negative, Rh positive. complicated by hyperemesis and anxiety/depression on Sertraline. Initiated on Pitocin overnight due to slow progress. AROM just now with blood-tinged fluid. - Continue pitocin, titrated as tolerated. Anticipate . - FHT reassuring - GBS negative, no prophylaxis indicated - Epidural in place for pain control Time-Based Coding :: [TOTAL MINUTES] spent with patient and on the chart (including review of chart, obtaining history, exam, reviewing outside data, placing orders, documenting exam and treatment plan, and counseling patient) on [DATE].
--- NOTE | 2024-07-03 08:36 | PATH_ITS ---
[facility] Accession Number: [id number] No. of containers..01 Tissue . 01 Material submitted: . placenta - PLACENTA (LOOK AT CORD) . 01 Clinical history: . PLACENTA (LOOK AT CORD) . 01 Diagnosis: PLACENTA: Intact hernández placenta with features of maturation consistent with third trimester gestational age. Placental weight: 456 grams; greater than 25th percentile for gestational age of 38 weeks 5 days. Centrally inserted umbilical cord with three vessels and with a pseudoknot; no arteritis, funisitis, true knots, or thrombi identified. Marginally inserted membranes; no evidence of chorioamnionitis or features of meconium staining. Unremarkable placental parenchyma. No villitis, infarcts, or features of abruption identified. MRV 07/06/2024 1559 Local . 01 Electronically signed: . Eneida Watson MD, Pathologist NPI- [id number] . 01 Gross description: . Received in formalin with two identifiers and no site on jar, is a discoid hernández placenta (456 grams trimmed weight, 17.1 x 15.0 x 2.4 cm) with no accessory lobes identified. The membranes are villalpando and translucent with the amnion diffusely from the chorion. The cord inserts at the margin and has a point of rupture 5.6 cm from the nearest placental disc edge. No discoloration or thickening is identified. . The cord (35.5 cm in length and 1.2 to 2.1 cm in diameter) has a leftward coild with an index of approximately one twist per 5 cm. An area of cord located centrally and measuring 3.8 cm in length is possibly consistent with a pseudoknot and the vessels have partially from one another spanned by membranous tissue and [place]'s jelly. No distinct knots or additional lesions are identified. The cut surface is trivascular and unremarkable with no lesions identified (photographs taken). . The surface is blue-soto with normal arborizing vasculature and the amnion is approximately 50% from the chorion. No lesions are identified. . The maternal surface is apparently complete with no lesions identified, and the cut surfaces are red and spongy with no dicoloration or lesions identified. . Student Development Advisor sections are submitted as follows: A1: Membrane roll placental end of cord and possible pseudoknot. A2: Membrane roll and end of cord. A3-A5: Central full thickness unremarkable sections. ([id number]) /AMPARO 07/05/2024 0859 Local . 01 Pathologist provided ICD-10: O63.9, O63.0, O69.89X0 . 01 CPT . 662596 Specimen Comment: A courtesy copy of this report has been sent to [phone] Performed at: [address] [facility] [address], [place], [place] [id number] MD Bryan Zambrano MD Phone: [phone]
--- NOTE | 2024-07-03 08:49 | P.PCNOB_ITS ---
Labor & Delivery Delivery date: 07/03/24 Cervical ripening method: none Induction method: none Delivery augmentation: rupture of membranes and pitocin Delivery monitor: external FHT and external uterine Route of delivery: L&D Laceration Description: None Quantitative Blood Loss: 300 Anesthesia Type: Epidural Complications: None Narrative: PROCEDURE: at 38w5d presented in active labor and was admitted to Labor and Delivery. She was initiated on pitocin due to slow progress. The patient progressed through the 1st stage over 4.5 hours. ROM occured at 7:37 with blood-tinged fluid. Pain was controlled with an epidural. The patient progressed through the 2nd stage over 4 minutes and delivered a viable female infant with APGARs 9/9 at 8:12 via without complications. The cord was cut and clamped after it stopped pulsating. The placenta delivered with gentle cord traction, and appeared complete. The perineum and vagina were inspected with no lacerations. Needle and sponge counts were correct.? The vagina was inspected and no items were left in situ. Cindy was doing well with Umair, her and Jorgito, her , at bedside. PREPROCEDURE DIAGNOSIS: Intrauterine at 38w6d Anxiety/depression GBS negative RH positive POSTPROCEDURE DIAGNOSIS: Intrauterine at 38w6d, delivered Same as preprocedure [place] [facility] 1: gender: Female Presentation: vertex Position: Left Occiput Anterior Placenta delivery description: Spontaneous Cord Vessel Description: 3 Vessels and Nuchal Cord score (1 min): 9 score (5 min): 9 weight: 7 lb 1.441 oz Plan for aftercare: Routine care
[2024-07-03] MEDS: IBUPROFEN 600 MG TABLET PO ×2 (12:02→17:58)
[2024-07-03] MEDS: WITCH HAZEL/GLYCERIN PADS 1 EACH TOP (13:20)
[2024-07-03] MEDS: DERMOPLAST SPRAY 20% 60 ML 1 SPRAY TOP (13:20)
[2024-07-03] MEDS: SERTRALINE 50 MG TABLET 150 MG PO (13:20)
[2024-07-03] MEDS: ACETAMINOPHEN 325 MG TABLET 650 MG PO ×2 (14:29→20:49)
[2024-07-04] MEDS: ACETAMINOPHEN 325 MG TABLET 650 MG PO (03:12)
[2024-07-04] MEDS: IBUPROFEN 600 MG TABLET PO (03:12)
--- NOTE | 2024-07-04 08:47 | PM.OBDS.1 ---
Discharge Providers Provider Date of admission: 07/02/24 16:07 Discharge Date: 07/04/24 Primary care physician: Brooke Booker MD Consults: 07/02/24 18:01 Consult to Anesthesiology Urgent Comment: Consulting Provider: Anesthesiologist Reason for consultation: Epidural 07/04/24 08:47 Consult to [employer] Doc[employer] Routine Comment: Discharge provider: Brooke Booker MD Summary Hospital Course Date Patient Seen: 07/04/24 Diagnoses: Intrauterine at 38w6d Anxiety/depression GBS negative RH positive Hospital Course: The pt presented in active labor. She received an epidural for pain control. Labor was augmented with pitocin. AROM was performed with blood-tinged fluid present when the pt was 9cm dilated. She progressed to complete and had an of a viable baby girl without complications. There were no lacerations. , there were no complications. At the time of discharge she was voiding, ambulating, and passing flatus without difficulty. Her lochia was decreasing appropriately. Her pain was well controlled. She was with good latch. She will f/u in 6 weeks for check. Her had a vasectomy for contraception. Peripartum Data Delivery Method: Natural Vaginal Laceration Description: None Episiotomy description: None Procedures: Spontaneous vaginal delivery complications: none [place] 1: Gender: Female Disposition of : home Status at Discharge Cognitive/behavioral status at discharge: oriented Functional status at discharge: independent ambulation Overall status at discharge: patient is progressing back to baseline Time Spent with Patient Time attestation: Total time spent providing and/or coordinating discharge services: Objective Labs 07/02/24 18:50 Exam Narrative Exam Narrative: Gen: NAD, sitting comfortably in bed, appears well CV: RRR, no murmurs Resp: clear to auscultation bilaterally Abd: soft, appropriately tender, fundus firm and below the umbilicus, nondistended Ext: no edema Discharge Plan Discharge Plan Patient Disposition: Home Discharge orders & Medications Prescriptions: New acetaminophen 325 mg Tablet 650 mg PO Q6HR PRN (Reason: Pain, Mild (1-3)) Qty: 30 0RF docusate sodium 100 mg Capsule 100 mg PO DAILY Qty: 30 0RF ibuprofen 600 mg Tablet 600 mg PO Q6HR PRN (Reason: Pain, Mild (1-3)) Qty: 30 0RF Continued sertraline 100 mg tablet 150 mg PO DAILY Qty: 135 3RF albuterol sulfate 90 mcg/actuation HFA aerosol inhaler 2 puff INHALATION Q4-6H PRN (Reason: shortness of breath) Qty: 8.5 1RF prenat.vits,rin,[id number] Tablet 1 tab PO DAILY Discontinued bupropion HCl 150 mg tablet extended release 24 hr 150 mg PO QAM Qty: 30 2RF ondansetron 4 mg tablet,disintegrating 4 mg PO Q6H PRN (Reason: nausea and vomiting) Qty: 30 3RF dextroamphetamine-amphetamine 10 mg capsule,extended release 24hr 10 mg PO DAILY Qty: 30 0RF Follow up/Referrals: Brooke Booker MD [Primary Care Provider] - 6 Weeks Diet/Activity/Treatments Diet: Diet as Tolerated and Regular Skin/Wound/Dressing Care Report to your healthcare provider any signs of infection, such as:: chills, fever, increased pain and unusual drainage Visit Report/Discharge Packet Instructions: DI for Labor and Delivery, Vaginal Stand Alone Forms: Patient Portal/API, Stroke Signs & Symptoms Discharge Data Primary Care Provider: Brooke Booker
[2024-07-04 08:48] VITALS: BP 104/70; PULSE 72; RESP 17; TEMP 36.6
[2024-07-04] MEDS: SERTRALINE 50 MG TABLET 150 MG PO (09:29)
[2024-07-04] MEDS: PRENATAL VIT,CALC/IRON/FOLIC 1 TABLET 1 TAB PO (09:30)
[2024-07-04] MEDS: LANOLIN OINT 7 GM 1 APPLIC TOP (09:30)
[2024-07-04] MEDS: DOCUSATE 100 MG CAPSULE PO (09:31)
== END 2024-07-04 09:40 | disposition home or self-care (01) | DRG 807 ==
PROVIDERS: Admitting Provider Family Medicine; PCP Family Medicine; Referring Provider Family Medicine; Visit Provider Family Medicine
DX: O21.0 Mild hyperemesis gravidarum (principal); Z37.0 Single live birth; O99.344 Other mental disorders complicating childbirth; F41.8 Other specified anxiety disorders; Z3A.38 38 weeks gestation of pregnancy
CPT/HCPCS: 36415; 59025; 59050; 84112; 85025; 86850; 86900; 86901; G0379; J2590